=== PATIENT | female | born 1945 | race Caucasian/White ===

== ENCOUNTER 2019-09-09 09:00 | Observation (INO) ==
--- NOTE | 2019-08-17 21:00 | PAT Medication Instructions ---
Medication Instructions Date of Service August 17, 2019 Home Medications acetaminophen [Tylenol Extra Strength] 500 mg PO QID PRN benzonatate 100 mg PO TID PRN bupropion HCl 300 mg PO QAM cholecalciferol (vitamin D3) [Vitamin D3] 25 mcg PO QAM citalopram 20 mg PO QAM cyanocobalamin (vitamin B-12) [Vitamin B-12] 1,000 mcg PO QAM zuamekdvyyr-ipuhljvnk-heyreojl [Trelegy Ellipta] 1 inh INHALATION QAM glipizide 10 mg PO BID lorazepam 1.5 mg PO TID PRN losartan 50 mg PO QAM metformin 1,000 mg PO BID metoprolol succinate 100 mg PO QAM nifedipine 30 mg PO QAM tramadol 100 mg PO Q6H warfarin 3.75 mg PO 4XWK warfarin 7.5 mg PO 3XWK ASK your prescriber and surgeon warfarin 3.75 mg PO 4XWK warfarin 7.5 mg PO 3XWK DO NOT take the morning of surgery benzonatate 100 mg PO TID PRN cholecalciferol (vitamin D3) [Vitamin D3] 25 mcg PO QAM cyanocobalamin (vitamin B-12) [Vitamin B-12] 1,000 mcg PO QAM glipizide 10 mg PO BID losartan 50 mg PO QAM metformin 1,000 mg PO BID Take morning of surgery With a small sip of water, OTHERWISE NOTHING TO EAT OR DRINK AFTER MIDNIGHT: acetaminophen [Tylenol Extra Strength] 500 mg PO QID PRN (okay to take up to 4 hours prior to surgery if needed) bupropion HCl 300 mg PO QAM citalopram 20 mg PO QAM [id number]-splodgkto-vzxxgdet [Trelegy Ellipta] 1 inh INHALATION QAM lorazepam 1.5 mg PO TID PRN (if needed) metoprolol succinate 100 mg PO QAM nifedipine 30 mg PO QAM tramadol 100 mg PO Q6H (okay to take up to 4 hours prior to surgery if needed) Take evening before surgery acetaminophen [Tylenol Extra Strength] 500 mg PO QID PRN (if needed) benzonatate 100 mg PO TID PRN (if needed) glipizide 10 mg PO BID lorazepam 1.5 mg PO TID PRN (if needed) metformin 1,000 mg PO BID tramadol 100 mg PO Q6H Other Notes If you have any questions please call us at [phone] or [phone] or [phone] or [phone]
--- NOTE | 2019-08-18 11:00 | PAT Medication Instructions ---
Medication Instructions Date of Service August 18, 2019 Home Medications acetaminophen [Tylenol Extra Strength] 500 mg PO QID PRN benzonatate 100 mg PO TID PRN bupropion HCl 300 mg PO QAM cholecalciferol (vitamin D3) 25 mcg PO QAM citalopram 20 mg PO QAM cyanocobalamin (vitamin B-12) 1,000 mcg PO QAM [id number]-ieybxmdgf-mymirryt [Trelegy Ellipta] 1 inh INHALATION QAM glipizide 10 mg PO BID lorazepam 1.5 mg PO TID PRN losartan 50 mg PO QAM metformin 1,000 mg PO BID metoprolol succinate 100 mg PO QAM nifedipine 30 mg PO QAM tramadol 100 mg PO Q6H warfarin 3.75 mg PO 4XWK warfarin 7.5 mg PO 3XWK ASK your prescriber and surgeon warfarin 3.75 mg PO 4XWK warfarin 7.5 mg PO 3XWK DO NOT take the morning of surgery acetaminophen [Tylenol Extra Strength] 500 mg PO QID PRN benzonatate 100 mg PO TID PRN cholecalciferol (vitamin D3) 25 mcg PO QAM cyanocobalamin (vitamin B-12) 1,000 mcg PO QAM glipizide 10 mg PO BID losartan 50 mg PO QAM metformin 1,000 mg PO BID Take morning of surgery With a small sip of water, OTHERWISE NOTHING TO EAT OR DRINK AFTER MIDNIGHT: bupropion HCl 300 mg PO QAM citalopram 20 mg PO QAM ahcvkbrwymn-idwkyjine-uiqxcuek [Trelegy Ellipta] 1 inh INHALATION QAM lorazepam 1.5 mg PO TID PRN (if needed) metoprolol succinate 100 mg PO QAM nifedipine 30 mg PO QAM tramadol 100 mg PO Q6H (if needed, may be taken up to four hours before surgery) Take evening before surgery acetaminophen [Tylenol Extra Strength] 500 mg PO QID PRN (if needed) benzonatate 100 mg PO TID PRN (if needed) glipizide 10 mg PO BID lorazepam 1.5 mg PO TID PRN (if needed) metformin 1,000 mg PO BID tramadol 100 mg PO Q6H (if needed) Other Notes If you have any questions please call us at [phone] or [phone] or [phone] or [phone]
--- NOTE | 2019-08-18 11:09 | Anesthesiology Consultation ---
Date of Service August 18, 2019 Assessment & Plan (1) Encounter for pre-operative examination: COVID Status: As of 08/17 assessment, patient denies travel to endemic area, known exposure/sick contacts, or symptoms of COVID19. Patient instructed to follow strict social distancing guidelines, wear a mask in public and avoid travel for 14 days prior to surgery. Preoperative COVID19 testing to be completed prior to surgery. Patient made aware to self-isolate as much as possible between COVID testing and surgery. Patient could not void at [facility]; will take UA to [facility]. Chart Review Chart Review: Acceptable Risk for Surgery (pending surgeon-ordered UA) and Patient seen in Pre Admission Testing Teaching & Discussion Instructed NPO after midnight before surgery, except medications with 15 cc of water. Medication instructions provided according to the [facility] guidelines. History Surgery Operation Date: 09/09/19 10:40 Proposed Procedures p Left Total Knee Arthroplasty - Ru Longo MD Height/Weight Height: 5 ft 3 in Weight: 104.6 kg Allergies Allergy/AdvReac Type Severity Reaction Status Date / Time codeine Allergy UNKNOWN Verified 08/14/19 10:35 loracarbef Allergy UNKNOWN Verified 08/14/19 10:35 promethazine Allergy UNKNOWN Verified 08/14/19 10:35 spironolactone Allergy UNKNOWN Verified 08/14/19 10:35 tizanidine Allergy UNKNOWN Verified 08/14/19 10:35 gabapentin AdvReac Mild HEADACHE Verified 08/14/19 10:35 pregabalin AdvReac Hives Verified 08/14/19 10:35 Medications Home Medications Medication Instructions Recorded Confirmed Last Taken acetaminophen [Tylenol Extra 500 mg PO QID PRN 08/14/19 08/14/19 Unknown Strength] benzonatate 100 mg PO TID PRN 08/14/19 08/14/19 Unknown bupropion HCl 300 mg PO QAM 08/14/19 08/14/19 Unknown cholecalciferol (vitamin D3) 25 mcg PO QAM 08/14/19 08/14/19 Unknown [Vitamin D3] citalopram 20 mg PO QAM 08/14/19 08/14/19 Unknown cyanocobalamin (vitamin B-12) 1,000 mcg PO QAM 08/14/19 08/14/19 Unknown [Vitamin B-12] sacgaxouljp-ibfvchduc-czqymfbg 1 inh INHALATION QAM 08/14/19 08/14/19 Unknown [Trelegy Ellipta] glipizide 10 mg PO BID 08/14/19 08/14/19 Unknown lorazepam 1.5 mg PO TID PRN 08/14/19 08/14/19 Unknown losartan 50 mg PO QAM 08/14/19 08/14/19 Unknown metformin 1,000 mg PO BID 08/14/19 08/14/19 Unknown metoprolol succinate 100 mg PO QAM 08/14/19 08/14/19 Unknown nifedipine 30 mg PO QAM 08/14/19 08/14/19 Unknown tramadol 100 mg PO Q6H 08/14/19 08/14/19 Unknown warfarin 3.75 mg PO 4XWK 08/14/19 08/14/19 Unknown warfarin 7.5 mg PO 3XWK 08/14/19 08/14/19 Unknown Past Medical History Medical History (Updated 08/19/19 @ 09:06 by Ramos Costa) Anxiety Asthma Atrial fibrillation managed by PCP Chronic back pain Chronic obstructive pulmonary disease controlled Congestive heart failure Single episode when dx with afib Depression Diabetes mellitus, type 2 DJD (degenerative joint disease) Hearing deficit Hypertension Kidney stones On home oxygen therapy 2LPM HS Osteoarthritis Exercise / Class Metabolic Activity III < 4 Walking/Shop/Light housework (Can barely walk currently due to knee pain, using cane or walker when has to move but not moving much. +SOB with ambulation at baseline, no chest pain) Past Family History Family History Sister Diabetes Past Surgical History Surgical History H/O bilateral oophorectomy History of arthroscopy LEFT KNEE History of bladder surgery BLADDER TACK History of breast biopsy LEFT History of cholecystectomy History of colonoscopy History of esophagogastroduodenoscopy (EGD) History of hysterectomy History of lithotripsy History of tooth extraction Hx of bilateral cataract extraction Past Anesthesia History No Hx of Anesthesia Complications and No Family Hx of Anesthesia Complications History of PONV No Hx of PONV and No Hx of Motion Sickness Social History Smoking Status: Former smoker Do You Dip or Chew Tobacco: No Smoking End Date: 21 YRS AGO Hx Alcohol Use: Yes Alcohol type: wine alcohol intake frequency: holidays/special occasions only Hx Substance Use: No substance use type: does not use Review of Systems Pt denies any recent chest pain, shortness of breath, cough, fever or URI. Rare palpitations. Physical Exam Vital Signs BP: 160/66 (pt reports she is nervous today) P: 66bpm SPO2: 97% RA T: 98.1 F R: 18 Constitutional + obese ENMT Mouth: + dentures (upper denture), + poor dentition and + macroglossia; no chipped teeth and no loose teeth Thyromental Distance: > or= 3.5 Finger Breadths (3.5) Mallampati Class: I Neck + thick neck; neck extension not limited Respiratory normal respiratory effort Auscultation: lungs clear to auscultation bilaterally Cardiovascular Rate/Rhythm: regular rate and regular rhythm Heart Sounds: no murmur Extremities: no edema Testing Laboratory Results 08/18/19 11:22 08/18/19 11:22 PT 19.8 Seconds (9.0-12.0) H 08/18/19 11:22 INR 1.9 (0.9-1.1) H 08/18/19 11:22 APTT 35.2 Seconds (21.0-31.0) H 08/18/19 11:22 Hemoglobin A1c 6.3 % (4.5-5.6) H 08/18/19 11:22 Blood Type O Positive 08/18/19 11:22 Antibody Screen NEGATIVE 08/18/19 11:22 Electrocardiogram Date: 08/18/19 Findings: + NSR @ (67bpm with PACs) Chest X-Ray Date: 08/18/19 Findings: + NAD
--- NOTE | 2019-08-18 12:44 | Electrocardiogram Report ---
Test Reason : Blood Pressure : / mmHG Vent. Rate : 067 BPM Atrial Rate : 067 BPM P-R Int : 204 ms QRS Dur : 068 ms QT Int : 386 ms P-R-T Axes : 090 069 071 degrees QTc Int : 407 ms Sinus rhythm with Premature atrial complexes Otherwise normal ECG No previous ECGs available Confirmed by Paras Diaz ([id number]) on 08/18/2019 12:43:25 PM Referred By: Ru Longo Confirmed By:Paras Diaz
--- NOTE | 2019-08-18 12:53 | XRay Report ---
XR chest Pre-admission PA/Lat CLINICAL HISTORY: PAT preoperative evaluation COMPARISON STUDY: No previous studies for comparison. FINDINGS: The bones soft tissues and hemidiaphragms are normal. The cardiomediastinal silhouette is n ormal. The lungs are clear. The pulmonary vasculature is normal. IMPRESSION: Negative chest. ACT 112: Negative or not required by law. The above report was generated using voice recognition software. It may contain grammatical, syntax or spelling errors. Electronically signed by: Shelton Carrington M.D. 08/18/2019 12:52 PM
[2019-08-18 13:02] LABS: Basophils # (auto) 0.06 K/uL (0-0.2); Basophils % (auto) 0.7 %; Eosinophils # (auto) 0.15 K/uL (0-0.5); Eosinophils % (auto) 1.8 %; Hematocrit (blood only) 34.4 % (37-47); Hemoglobin 10.4 g/dL (12.0-16.0); Immature Granulocytes # (auto) 0.02 K/uL (0.00-0.02); Immature Granulocytes % (auto) 0.2 %; Lymphocytes % (auto) 28.6 %; Mean Corpuscular Hemoglobin 26.3 pg (25-34); Mean Corpuscular Hgb Conc 30.2 g/dL (32-36); Mean Corpuscular Volume 87.1 fL (80-100); Monocytes # (auto) 0.72 K/uL (0.11-0.59); Monocytes % (auto) 8.6 %; Neutrophils # (auto) 5.04 K/uL (1.4-6.5); Neutrophils % (auto) 60.1 %; Platelet Count 282 K/uL (130-400); RDW Coefficient of Variation 15.2 % (11.5-14.5); RDW Standard Deviation 48.8 fL (36.4-46.3); Red Blood Count 3.95 M/uL (4.2-5.4); White Blood Count 8.39 K/uL (4.8-10.8)
[2019-08-18 13:09] LABS: Estimated Average Glucose 134 mg/dl; Hemoglobin A1C 6.3 % (4.5-5.6)
[2019-08-18 13:10] LABS: Albumin Level 3.4 gm/dl (3.4-5.0); BUN Creatinine Ratio 15.9 (10-20); Calcium 8.8 mg/dl (8.5-10.1); Creatinine Clr Calc Pharmacy 59.8 ml/min; Est GFR (African American) 67.2; Est GFR (Non-African American) 57.9; Potassium 4.8 mmol/L (3.5-5.1)
[2019-08-18 13:16] LABS: INR 1.9 (0.9-1.1); Partial Thromboplastin Ratio 1.3; Partial Thromboplastin Time 35.2 Seconds (21.0-31.0); Prothrombin Time 19.8 Seconds (9.0-12.0)
--- NOTE | 2019-09-08 17:54 | History and Physical Report ---
DATE OF ADMISSION: 09/09/2019 CHIEF COMPLAINT: Chronic left knee pain. HISTORY OF PRESENT ILLNESS: This is a 73-year-old female patient of Dr. Longo'carmen complaining of chronic left knee pain, longstanding, now progressively getting worse. The patient has failed conservative treatment including topical gel treatment, tramadol, home exercise program and the use of a cane. The patient has increased pain with weightbearing activities and her pain does interfere with her activities of daily living. The patient has been diagnosed with end-stage osteoarthritis per clinical and radiographic exams. The patient wished to proceed with a left total knee arthroplasty. PAST MEDICAL HISTORY: Congestive heart failure, hypertension, irregular heartbeat, asthma, COPD, anxiety, diabetes mellitus, neck problems, acid reflux, kidney stones. SOCIAL HISTORY: Nonsmoker, occasional drinker. PAST SURGICAL HISTORY: Hysterectomy and cholecystectomy. FAMILY HISTORY: Noncontributory. REVIEW OF SYSTEMS: Chronic left knee pain, otherwise denies any shortness of breath, chest pain, nausea, vomiting or any other joint complaints. MEDICATIONS: 1. Metformin 1000 mg twice daily. 2. Glipizide 10 mg twice daily. 3. Metoprolol 100 mg daily. 4. Nifedipine 30 mg daily. 5. Losartan 50 mg daily. 6. Citalopram 20 mg daily. 7. Bupropion 150 mg take 2 tablets daily. 8. Lorazepam 0.5 mg 1-2 tablets 3 times daily as needed. 9. Coumadin 2.5 mg daily, Saturday, Saturday, Saturday, and Saturday. 10. Warfarin 7.5 mg Saturday, Saturday and . 11. Tramadol 50 mg as needed. 12. Trelegy Ellipta 100 mcg/62.5 mcg 1 puff inhalation daily. 13. Tylenol as needed. 14. Benzonatate 100 mg 3 times daily. ALLERGIES: No known drug allergies. PHYSICAL EXAMINATION: GENERAL: Well-developed, well-nourished 73-year-old female in no acute distress. She is alert and oriented x3 and pleasant. HEENT: Normocephalic, atraumatic. Extraocular motions are intact. Pupils are equal and reactive to light. HEART: Regular rate and rhythm, no murmurs. LUNGS: Clear. ABDOMEN: Soft, nontender, bowel sounds present. EXTREMITIES: Left knee varus deformity, mild effusion. Medial joint line tenderness with positive crepitation. Range of motion 15-90 degrees. Strength is 5/5, left lower extremity shows moderate lymphedema with no skin breakdown or drainage. No sensitivity to skin. DIAGNOSES: Left knee end-stage osteoarthritis, congestive heart failure, hypertension, irregular heartbeat, asthma, emphysema, anxiety, diabetes mellitus, neck problems, acid reflux, kidney stones. PLAN: The patient was advised of her diagnosis. Indications, risks, benefits, postop course have all been reviewed. The patient wished to proceed with a left total knee arthroplasty. Necessary consent forms, preoperative testing.
[~2019-09-09 09:00] MED LIST: ACETAMINOPHEN 500 MG TAB PO SCH; BUPIVACAINE 0.5 % 5 MG/1 ML PF 10ML VIAL ONE; BUPIVACAINE/EPINEPHRINE 0.25% 1:200,000 30 ML VIAL ONE; CEFAZOLIN 2000MG 2,000 MG/15 ML SYR IV SCH; CeleBREX 200 MG CAP PO SCH; FAMOTIDINE 20 MG TAB PO SCH; GABAPENTIN 300 MG CAP PO SCH; LR 500ML BOLUS, THEN 15ML/HR IV SCH; METOCLOPRAMIDE HCL 10 MG TABLET PO SCH; ROPIVACAINE 0.5% HCL/PF 150 MG, BUPIVACAINE 0.5% MPF 30 ML, EPINEPHrine 30MG/30ML (OR U... INSTIL SCH; dexAMETHasone 4 MG TAB PO SCH
[2019-09-09 10:01] LABS: Partial Thromboplastin Time 26.6 Seconds (21.0-31.0); Prothrombin Time 10.8 Seconds (9.0-12.0)
[2019-09-09] MEDS ORDERED: fentaNYL citrate 100 MCG/2 ML VIAL IV PRN (10:56)
[2019-09-09] MEDS ORDERED: ONDANSETRON INJ 2 MG/ML 2 ML VIAL IV PRN (10:56)
[2019-09-09] MEDS ORDERED: ATROPINE SULFATE 0.1 MG/ML 10ML SYR IV PRN (10:56)
[2019-09-09] MEDS ORDERED: HYDROmorphone INJ 2 MG/ML SYR/VIAL IV PRN (10:56)
[2019-09-09] MEDS ORDERED: ePHEDrine sulfate 50 MG/ML AMP IV PRN (10:56)
[2019-09-09] MEDS ORDERED: MIDAZOLAM HCL 1 MG/ML 2ML VIAL ONE (10:57)
[2019-09-09] MEDS ORDERED: PROPOFOL IV EMULSION 10 MG/ML 20 ML VIAL IV ONE ×3 (10:58→14:03)
[2019-09-09] MEDS ORDERED: ORTHO JOINT ANESTHETIC ONE (11:36)
[2019-09-09] MEDS ORDERED: BACITRACIN INJ 50,000 UNIT VIAL ONE (11:36)
[2019-09-09] MEDS ORDERED: TRANEXAMIC ACID / 0.7% NACL 1000MG/100ML BAG IV ONE (11:37)
--- NOTE | 2019-09-09 11:39 | History & Physical Bridge Note ---
Date of Service September 09, 2019 History & Physical Bridge Note I have examined the patient, reviewed the History & Physical and in the interval since the performance of the History & Physical I have noted the following changes of clinical significance: no changes noted
[2019-09-09] MEDS ORDERED: TRANEXAMIC ACID / 0.7% NACL 1,000 MG/100 ML BAG IV STA (11:43)
[2019-09-09] MEDS ORDERED: CLINDAMYCIN 900 MG in DEXTROSE 5% 50 ML IV ONE (12:00)
--- NOTE | 2019-09-09 14:17 | Post Operative Brief Note ---
Immediate Post Op Note v1 Date of Surgery September 09, 2019 Pre & Post Diagnosis Operation Date: 09/09/19 11:20 Pre-Op Diagnosis: LEFT KNEE OSTEOARTHRITIS, obesity BMI 41 Post-Op Diagnosis: LEFT KNEE OSTEOARTHRITIS, obesity BMI 41 I identified the patient and participated in the time-out.: Yes Procedure Operation Date: 09/09/19 11:20 Actual Procedures p Left Total Knee Arthroplasty(Left), increased difficulty BMI 41- Ru Longo MD Surgeon Ru Longo MD Water Supply Engineer WING Moran Estimated Blood Loss 5 Findings Consistent with Post-Op Diagnosis Specimens Bone cuts Drains Hemovac Drain (10 palestinian, dual lumen) Anesthesia Type MAC Spinal Regional Complications none Disposition Accompanied Patient To Recovery: No Disposition: Recovery Room Overlapping Procedure I was immediately available: during the entire case.
--- NOTE | 2019-09-09 14:32 | Operative Report ---
Post Operative Report Pre & Post Diagnosis Operation Date: 09/09/19 11:20 Pre-Op Diagnosis: LEFT KNEE OSTEOARTHRITIS obesity BMI 41 Post-Op Diagnosis: LEFT KNEE OSTEOARTHRITIS obesity BMI 41 I identified the patient and participated in the time-out.: Yes Procedure Operation Date: 09/09/19 11:20 Actual Procedures p Left Total Knee Arthroplasty(Left), increased difficulty obesity BMI 41- Ru Longo MD Surgeon Ru Longo MD [place] Consultant WING Moran Estimated Blood Loss 5 Findings Consistent with Post-Op Diagnosis Specimens Bone cuts Drains 2 Hemovac Anesthesia Type MAC Spinal Regional Complications none Disposition Accompanied Patient To Recovery: No Disposition: Recovery Room Indications 70-year female with extremely severe bilateral knee osteoarthritis tricompartmental disease cyih-[id number] medial compartment bilaterally varus knees. Large hypertrophic osteophytes all compartments. Limited range of motion. Description of Procedure Patient taken to the operating room the size under spinal MAC regional anesthesia. Patient was placed supine on the operating table. A pneumatic to urniquet was placed about the obese left upper thigh. The left lower extremity was prepped and draped in sterile fashion. Knee exam demonstrated 10 through 80 degrees range of motion only. The leg was elevated exsanguinated with an Esmarch bandage and pneumatic tourniquet was raised to 350 millimeters of mercury. Skin incised sharply in longitudinal fashion. Subcutaneous flaps elevated. Incision was made through the medial retinaculum extending up in the mid third of the quadriceps tendon and down to the medial tibial tubercle. Intra-articular findings demonstrated severe tricompartmental DJD large medial posterior medial osteophytes large patellofemoral osteophytes grade 4 medial compartment and patellofemoral OA with tricompartmental DJD tricompartmental osteophytes. The Paper[place] triathlon total knee arthroplasty system was used. To expose the knee the infrapatellar fat pad was resected. The meniscal remnants and cruciate ligaments were resected. The anterior fat pad over the femur in the area of the anterior flange of the femoral component was resected. Lateral synovial bands release. The femur was exposed. An intramedullary drill hole was made into the canal. A guide cameron was placed. Distal femoral cutting guide was adjusted to resect a 5 degree valgus cut with 10 millimeters distal femur resected. The knee was extended and a subperiosteal peel lateral release was performed around the patella. Patella width was measured and width was reproduced using a freehand cut technique and a 33 symmetrical patella component. The 3 drill holes were made and the excess lateral facet was beveled off to prevent any impingement. Attention was taken back to the femur which was exposed with retractors and the femoral sizing guide was pinned in position. The drill holes were placed in 3 of external rotation to match epicondylar axis. Femur sized for a 3 component. The 4-in-1 cutting block was placed and then the anterior posterior and chamfer cuts are made. Very large medial posterior medial osteophytes on both the tibia and the femur were resected. The tibia was then subluxed. The external tibial cutting guide was just to make a perpendicular cut to the long axis of the tibia below the most deficient bone loss side. A lamina hat body sorter was used and the flexion extension gaps were balanced. All posterior osteophytes removed. All meniscal remnants were resected. The tibia exposed and the trial tibial component size 3 was externally rotated in line with the tibial tubercle and pinned in position. The punch for stem was used. The notch cutting device was centered appropriately and the femoral notch cut was made. The femoral trial was inserted. Trial tibial inserts were placed and size 13 posterior stabilized gave balanced ligaments through flexion and extension. Patella tracking was assessed. The patella tracked centrally. The trial components were then removed and the orthomix anesthetic cocktail was injected per protocol. The knee was then copiously irrigated with pulsatile lavage antibiotic solution. Final components were then cemented with Simplex cement. Final components were [place] triathlon size 3 posterior stabilized left femoral component, 3 primary tibial baseplate, x 3 polyethylene size 13 posterior stabilized tibial insert, x 3 polyethylene 33 symmetrical patella. While the cement cured the Betadine soak was used per protocol. After cement cured further pulsatile lavage irrigation performed and 2 Hemovac drains were brought out laterally. The quadriceps tendon and medial retinaculum were closed with figure of 8 #1 Vicryl sutures. The knee was taken through full range of motion and the repair was secure. The subcutaneous tissues were closed with 2-0 Vicryl sutures. Skin was closed with smiley. Sterile dressings were applied. There was some increased level difficulty and increased length of time due to her obesity and severity of the knee arthritis. Patient tolerated the procedure well. Shelton DIMAS was my physician blood and plasma laboratory assistant who assisted in patient positioning prepping and draping,leg positioning ,soft tissue retraction and instrument management and participated in the closing and will participate in postoperative care of the patient. I attest to the content of the Intraoperative Record and any orders documented therein. Any exceptions are noted below.
--- NOTE | 2019-09-09 14:43 | XRay Report ---
XR knee LT 1 or 2V routine CLINICAL HISTORY: Postoperative evaluation. COMPARISON: None FINDINGS: Alignment of the total left knee arthroplasty is anatomic. There is no periprosthetic frac ture or unexpected radiopaque foreign body. There are skin smiley and drains. IMPRESSION: Expected findings following total left knee arthroplasty. ACT 112: Negative or not required by law. Electronically signed by: Charlie Green M.D. 09/09/2019 2:42 PM
--- NOTE | 2019-09-09 14:59 | Anesthesiology Progress Note ---
Date of Service September 09, 2019 Anesthesia Post Procedure Vital Signs Vital Signs: Temp Pulse Pulse Resp BP Pulse Ox 09/09/19 14:55 36.3 C L 85 17 161/72 H 95 09/09/19 14:45 85 16 137/76 97 09/09/19 14:35 90 17 145/79 H 96 09/09/19 14:25 85 17 145/73 H 97 09/09/19 14:17 36.5 C 94 H 19 142/85 H 100 09/09/19 10:47 36.7 C 83 20 127/67 95 09/09/19 09:48 36.9 C 78 20 187/81 H 94 Pain Intensity Left Knee: Pain Intensity: 0 Transfer of Care Handoff Completed per policy Notes Mental Status: alert / awake / arousable and participated in evaluation Patient Amnestic to Procedure: Yes Nausea / Vomiting: adequately controlled Pain: adequately controlled Airway Patency, RR, SpO2: stable & adequate BP & HR: stable & adequate Hydration State: stable & adequate Anesthetic Complications: no major complications apparent and Pt Satisfied with anesthetic care
[2019-09-09] MEDS ORDERED: bisacodyL 10 MG SUPP PR PRN (15:31)
[2019-09-09] MEDS ORDERED: NALOXONE HCL 0.4 MG/1 ML VIAL/CARP IV PRN (15:31)
[2019-09-09] MEDS ORDERED: LORazepam 1 MG TAB PO PRN (15:31)
[2019-09-09] MEDS ORDERED: BENZONATATE 100 MG CAPSULE PO PRN (15:31)
[2019-09-09] MEDS ORDERED: VANCOMYCIN CONSULT ACTIVE PRN (16:00)
[2019-09-09] MEDS ORDERED: PHARMACY GLYCEMIC MGMT CONSULT PRN (16:15)
[2019-09-09] MEDS ORDERED: MAGNESIUM HYDROXIDE SUSP 30 ML UDC PO PRN (16:15)
--- NOTE | 2019-09-09 16:51 | Pharmacy Report ---
Glycemic Control Consultation - Date of Service September 09, 2019 - Scope Scope: Glycemic Pharmacist consulted for glycemic control and to write orders per [facility] inpatient glycemic control protocol. - Objective Weight: 104.9 kg Accuchecks BSG (last 24hrs): 09/09/19 09/09/19 09:27 14:27 POC Glucose 113 H 200 H HbA1c: Hemoglobin A1c 6.3 % (4.5-5.6) H 08/18/19 11:22 - Recent Pertinent Medications Outpatient Anti-diabetic Regimen: * Metformin 1000 mg PO BID, Glipizide 10 mg PO BID * A1c = 6.3% on 08/18/2019 Risk Factors for Insulin Resistance: * Steroids: * Dexamethasone 8 mg PO pre-op * Recent Surgery: * POD #0 L TKA * Diet: * T2DM - Assessment & Plan Assessment & Plan: ASSESSMENT: * 73 yo F admitted secondary to left total knee arthroplasty. Pharmacy is consulted for glycemic management. Patient is well-controlled as an outpatient on Metformin + Glipizide demonstrated by recent A1c of 6.3%. * Pt is maintained on oral antidiabetic agents as an outpatient * Oral agents are not recommended for inpatient use d/t drug interactions, changing PO intake, and difficulty titrating for acute hyper/hypoglycemia. ADA recommends re-initiating outpatient oral agents 1-2 days prior to discharge if/when appropriate if they were held on admission. Will hold oral agents for admission and utilize SQ basal bolus insulin regimen which is the recommended regimen for inpatient glycemic control. * ADA & AACE recommend a goal blood sugar range 140-180 mg/dl for the majority of critically ill & non-critically ill patients. However, more stringent targets may be selected in individual cases. Will utilize more stringent goal of 110-140mg/dl based on patient age & comorbidities. Additionally, tighter glycemic control is warranted to facilitate wound/infection healing. * Patient is at risk for hyperglycemia secondary to stressors of recent surgery, pre-op steroids and diet ordered. * Pre-op BSG was 113 mg/dL. Post-op BSG was elevated at 200 mg/dL. * Given post-op hyperglycemia and stressors, will give patient a one time, moderate stress, weight based basal insulin order to cover for prolonged duration of dexamethasone. Will also plan to start patient on bolus insulin based on high stress, weight based dose. PLAN FOR INPATIENT GLYCEMIC CONTROL: * Holding outpatient oral diabetes medications * Basal insulin * Lantus 20 units SQ x 1 * Bolus insulin * NovoLog per scale ACHS or Q6hrs while NPO * Goal Range: Low 110 mg/dL - High 140 mg/dL * Correction Factor: 15 mg/dL/unit * Nutritional / Prandial insulin per carb ratio of 1 unit per 5 grams CHO consumed * Please note that the plan above was derived based on current level of insulin resistance and hospital stress. These recommendations are appropriate for inpatient admission only. Plan of care upon discharge will need to be reassessed to avoid potential outpatient hypo/hyperglycemia. Thank you.
[2019-09-09] MEDS ORDERED: LANTUS PER UNIT CHARGE SQ ONE (17:00)
[2019-09-09] MEDS: SODIUM CHLORIDE 0.9% 1000ML 1,000 ML IV SCH (17:38)
[2019-09-09] MEDS: WARFARIN SOD 7.5 MG TAB PO SCH (17:42)
[2019-09-09] MEDS: INSULIN ASPART 100 UNITS/ML 3 ML PEN SC SCH ×2 (17:47→21:45)
--- NOTE | 2019-09-09 18:45 | Internal Medicine Consult Note ---
Date of Consultation September 09, 2019 Assessment & Plan (1) S/P total knee arthroplasty: Left knee arthroplasty POD #0 Management will be as per Ortho Denies any significant pain (2) Atrial fibrillation: History of irregular heartbeats likely secondary to atrial fibrillation Preoperative EKG did not show any atrial fibrillation (3) Chronic obstructive pulmonary disease: History of COPD on home oxygen Minimal wheezing involving the left base (4) Asthma: No acute exacerbation (5) On home oxygen therapy: As above (6) Hypertension: Blood pressure seems to be controlled DVT prophylaxis As per Ortho History of Present Illness Reason for Consultation: Medical management following left knee arthroplasty Requesting Physician: Dr. Longo Attending Physician: Ru Longo MD History of Present Illness She is a 73-year-old obese female with significant past medical history including CHF, hypertension, atrial fibrillation, asthma, COPD, diabetes, anxiety and GERD apparently underwent left total knee arthroplasty by Dr. Wilde this morning. Preoperative labs EKG and imaging studies were unremarkable. She complained some numbness involving the left knee but denies any other significant symptoms following surgery. Denies any chest pain and no p alpitation. No abdominal pain nausea no vomiting. No headache, no numbness and/or tingling involving any of the extremities. Allergies Allergy/AdvReac Type Severity Reaction Status Date / Time codeine Allergy UNKNOWN Verified 09/09/19 09:43 loracarbef Allergy UNKNOWN Verified 09/09/19 09:43 promethazine Allergy UNKNOWN Verified 09/09/19 09:43 spironolactone Allergy UNKNOWN Verified 09/09/19 09:43 tizanidine Allergy UNKNOWN Verified 09/09/19 09:43 gabapentin AdvReac Mild HEADACHE Verified 09/09/19 09:43 pregabalin AdvReac Hives Verified 09/09/19 09:43 Home Medications Home Medications Medication Instructions Recorded Confirmed Type acetaminophen [Tylenol Extra 500 mg PO QID PRN 08/14/19 09/09/19 History Strength] benzonatate 100 mg PO TID PRN 08/14/19 09/09/19 History bupropion HCl 300 mg PO QAM 08/14/19 09/09/19 History cholecalciferol (vitamin D3) 25 mcg PO QAM 08/14/19 09/09/19 History [Vitamin D3] citalopram 20 mg PO QAM 08/14/19 09/09/19 History cyanocobalamin (vitamin B-12) 1,000 mcg PO QAM 08/14/19 09/09/19 History [Vitamin B-12] hplebnzioxd-zfkdctnus-bciwzzgk 1 inh INHALATION QAM 08/14/19 09/09/19 History [Trelegy Ellipta] glipizide 10 mg PO BID 08/14/19 09/09/19 History lorazepam 1.5 mg PO TID PRN 08/14/19 09/09/19 History losartan 50 mg PO QAM 08/14/19 09/09/19 History metformin 1,000 mg PO BID 08/14/19 09/09/19 History metoprolol succinate 100 mg PO QAM 08/14/19 08/14/19 History nifedipine 30 mg PO QAM 08/14/19 08/14/19 History tramadol 100 mg PO Q6H 08/14/19 08/14/19 History warfarin 3.75 mg PO 4XWK 08/14/19 08/14/19 History warfarin 7.5 mg PO 3XWK 08/14/19 08/14/19 History Patient History Family History Sister Diabetes Social History Smoking Status: Former smoker Smoking End Date: 21 YRS AGO; Second Hand Exposure: No; Do You Dip or Chew Tobacco: No; Tobacco Cessation Education Requested by Patient: No Hx Alcohol Use: Yes Alcohol type: wine Hx Substance Use: No Preferred Language: Portuguese Communication Ability: Effective Cheesemaker Required: No Beliefs That Will Affect Care: None marital status: / Current Living Situation: Alone Other Information That Helps Us Care for You: No Feels Safe at Home: Yes Safety Concerns: Feels Safe At This Time Review of Systems Review of Systems: All systems reviewed & are unremarkable except as noted in HPI & below Physical Exam Physical Exam: Lying in bed comfortably Constitutional: WD/WN, vitals as above Eyes: PERRL, conjunctivae normal, anicteric sclerae ENMT: external ear and nose normal, oropharynx normal Neck: trachea midline, no thyromegaly Respiratory: no respiratory distress Auscultation: lungs clear to auscultation bilaterally and + diminished lung sounds (With minimal rhonchi left base) Cardiovascular: Rate/Rhythm: regular rate and regular rhythm Heart Sounds: no murmur Gastrointestinal (Abdomen): Inspection/Auscultation: abdomen normal to inspection and normal bowel sounds; abdomen not distended Musculoskeletal: No acute arthritis in any joint but left knee is not examined Neurologic: Alert, awake and oriented x3 Results & Data Vital Signs (Past 12 Hours) Vital Signs Temp Pulse Pulse Resp BP Pulse Ox 09/09/19 17:33 37.1 C 76 17 147/84 H 97 09/09/19 16:25 36.8 C 86 17 159/85 H 97 09/09/19 15:05 85 16 152/77 H 96 09/09/19 14:55 36.3 C L 85 17 161/72 H 95 09/09/19 14:45 85 16 137/76 97 09/09/19 14:35 90 17 145/79 H 96 09/09/19 14:25 85 17 145/73 H 97 09/09/19 14:17 36.5 C 94 H 19 142/85 H 100 09/09/19 10:47 36.7 C 83 20 127/67 95 09/09/19 09:48 36.9 C 78 20 187/81 H 94 Medications Administered Current Inpatient Medications Acetaminophen (Tylenol) 1,000 mg PO Q8 [facility] Stop: 10/09/19 21:59 Benzonatate (Tessalon Perle) 100 mg PO TID PRN PRN Reason: Cough Stop: 10/09/19 15:30 Bisacodyl (Dulcolax) 10 mg [place] DAILY PRN PRN Reason: Constipation Stop: 10/09/19 15:30 Bupropion HCl (Wellbutrin-Xl) 300 mg PO QAM [facility] Stop: 10/10/19 08:59 Celecoxib (Celebrex) 200 mg PO BID [facility] Stop: 10/09/19 20:59 Citalopram Hydrobromide (Celexa) 20 mg PO QAM [facility] Stop: 10/10/19 08:59 Cyanocobalamin (Vitamin B-12) 1,000 mcg PO QAM [facility] Stop: 10/10/19 08:59 Diphenhydramine HCl (Benadryl Capsule) 25 mg PO Q8H PRN PRN Reason: Itching Stop: 10/09/19 15:30 Docusate Sodium (Colace) 100 mg PO BID [facility] Stop: 10/09/19 20:59 Fluticasone Furoate (Arnuity Ellipta 100mcg) 1 puffs INH DAILY [facility]; Protocol Stop: 10/10/19 08:59 Hydromorphone HCl (Dilaudid) 0.5 mg IV Q4H PRN PRN Reason: Pain or Pre PT Stop: 09/23/19 15:30 Vancomycin HCl 1,500 mg/ (Sodium Chloride) 530 mls @ 125 mls/hr IV Q12H [facility]; Protocol Stop: 09/10/19 19:59 Sodium Chloride (Nss 1000ml) 1,000 mls @ 100 mls/hr IV .Q10H [facility] Stop: 09/10/19 15:59 Last Admin: 09/09/19 17:38 Dose: 100 mls/hr Documented by: Insulin Aspart (Novolog Flexpen) 0 units SC ACHS [facility]; Protocol Stop: 10/09/19 16:59 Last Admin: 09/09/19 17:47 Dose: 13 units Documented by: Lorazepam (Ativan) 1.5 mg PO TID PRN PRN Reason: Anxiety Stop: 10/09/19 15:30 Losartan Potassium (Cozaar) 50 mg PO [facility] Stop: 10/10/19 08:59 Magnesium Hydroxide (Milk Of Magnesia) 30 ml PO Q6H PRN PRN Reason: Constipation Stop: 10/09/19 16:14 Metoprolol Succinate ([facility] Xl) [facility] Stop: 10/10/19 08:59 Miscellaneous Information (Consult Glycemic Management Pharmacy) 1 ea N/A UD PRN PRN Reason: Consult Stop: 10/09/19 16:14 Multivitamins (Multivitamin Tab) 1 tab PO [facility] Stop: 10/10/19 08:59 Naloxone HCl (Narcan) 0.1 mg IV Q5M PRN PRN Reason: Oversedation/Resp Depression Stop: 10/09/19 15:30 Nifedipine (Procardia Xl) [facility] Stop: 10/10/19 08:59 Oxycodone HCl (Roxicodone Immediate Rel) 5 - 10 mg PO Q4H PRN PRN Reason: Pain or Pre PT Stop: 09/23/19 16:14 Sennosides (Senokot) 17.2 mg PO [facility] Stop: 10/09/19 20:59 Tramadol HCl (Ultram) 50 - 100 mg PO Q4H PRN PRN Reason: Pain & Pre PT Stop: 10/09/19 15:30 Umeclidinium/Vilanterol (Anoro Ellipta 62.5/25 Mcg Inh) 1 puffs INH DAILY [facility]; Protocol Stop: 10/10/19 08:59 Vitamin D (Vitamin D3) 1,000 units PO QAM [facility] Stop: 10/10/19 08:59 Warfarin Sodium (Coumadin) 7.5 mg PO TuWeTh@1600 [facility] Stop: 10/09/19 16:59 Last Admin: 09/09/19 17:42 Dose: 7.5 mg Documented by: Warfarin Sodium (Coumadin) 3.75 mg PO SuMoFrSa@1600 [facility] Stop: 10/11/19 15:59
[2019-09-09] MEDS: CeleBREX 200 MG CAP PO SCH (20:14)
[2019-09-09] MEDS: VANCOMYCIN HCL 1,500 MG in SODIUM CHLORIDE 0.9% 500 ML IV SCH (20:14)
[2019-09-09] MEDS: DOCUSATE SODIUM 100 MG CAP PO SCH (20:14)
[2019-09-09] MEDS: SENNA 8.6 MG TAB PO SCH (20:14)
[2019-09-09] MEDS: TRAMADOL HCL 50 MG TABLET PO PRN (20:15)
[2019-09-09] MEDS: ACETAMINOPHEN 500 MG TAB PO SCH (21:46)
[2019-09-10] MEDS ORDERED: CLINDAMYCIN PHOS 900 MG/6 ML VIAL IV SCH (06:00)
[2019-09-10] MEDS: ACETAMINOPHEN 500 MG TAB PO SCH ×3 (06:12→21:52)
[2019-09-10] MEDS: SODIUM CHLORIDE 0.9% 1000ML 1,000 ML IV SCH ×2 (06:23→12:40)
[2019-09-10 06:29] LABS: Basophils # (auto) 0.01 K/uL (0-0.2); Basophils % (auto) 0.1 %; Eosinophils # (auto) 0.01 K/uL (0-0.5); Eosinophils % (auto) 0.1 %; Hematocrit (blood only) 27.2 % (37-47); Hemoglobin 8.6 g/dL (12.0-16.0); Immature Granulocytes # (auto) 0.03 K/uL (0.00-0.02); Immature Granulocytes % (auto) 0.3 %; Lymphocytes % (auto) 13.2 %; Mean Corpuscular Hgb Conc 31.6 g/dL (32-36); Mean Corpuscular Volume 85.5 fL (80-100); Mean Platelet Volume 10.4 fL (7.4-10.4); Monocytes # (auto) 0.82 K/uL (0.11-0.59); Monocytes % (auto) 7.2 %; Neutrophils # (auto) 8.99 K/uL (1.4-6.5); Neutrophils % (auto) 79.1 %; Platelet Count 208 K/uL (130-400); RDW Coefficient of Variation 15.8 % (11.5-14.5); RDW Standard Deviation 49.3 fL (36.4-46.3); Red Blood Count 3.18 M/uL (4.2-5.4); White Blood Count 11.36 K/uL (4.8-10.8)
[2019-09-10 06:39] LABS: INR 1.1 (0.9-1.1); Prothrombin Time 11.2 Seconds (9.0-12.0)
[2019-09-10 07:11] LABS: BUN Creatinine Ratio 13.3 (10-20); Calcium 8.2 mg/dl (8.5-10.1); Creatinine Clr Calc Pharmacy 52.3 ml/min; Est GFR (African American) 57.1; Est GFR (Non-African American) 49.2; Magnesium 1.7 mg/dl (1.8-2.4); Potassium 4.9 mmol/L (3.5-5.1)
[2019-09-10] MEDS: FLUTICASONE FUROATE 100MCG 14 PUFFS/INHALER INH SCH (08:38)
[2019-09-10] MEDS: UMECLIDINIUM/VILANTEROL 62.5/25MCG 7 PUFFS/INHALER INH SCH (08:38)
[2019-09-10] MEDS: METOPROLOL SUCC 50MG EXT REL TAB PO SCH (08:38)
[2019-09-10] MEDS: NIFEdipine EXTENDED REL 30 MG TABCR PO SCH (08:39)
[2019-09-10] MEDS: LOSARTAN POTASSIUM 50 MG TAB PO SCH (08:39)
[2019-09-10] MEDS: CYANOCOBALAMIN 500 MCG TABLET (VITAMIN B-12) PO SCH (08:39)
[2019-09-10] MEDS: CITALOPRAM 20 MG TAB PO SCH (08:39)
[2019-09-10] MEDS: MULTIVITAMIN TAB PO SCH (08:39)
[2019-09-10] MEDS: BuPROPion XL 300 MG TABCR PO SCH (08:39)
[2019-09-10] MEDS: DOCUSATE SODIUM 100 MG CAP PO SCH ×2 (08:39→20:25)
[2019-09-10] MEDS: CeleBREX 200 MG CAP PO SCH ×2 (08:39→20:24)
[2019-09-10] MEDS: CHOLECALCIFEROL 1,000 UNITS 25 MCG TAB PO SCH (08:39)
[2019-09-10] MEDS: INSULIN ASPART 100 UNITS/ML 3 ML PEN SC SCH ×4 (08:48→21:48)
[2019-09-10] MEDS ORDERED: NON-FORMULARY MEDICATION (Fluticasone-Umeclidin-Vilanter [Trelegy Ellipta] 1 PUFFS) INH SCH (09:00)
--- NOTE | 2019-09-10 09:38 | Orthopedic Progress Note ---
Date of Service September 10, 2019 Assessment & Plan (1) S/P total knee arthroplasty: POD #1, Left TKA PT/ OT DVT proph- Resume home coumadin dosing D/C planning- Rehab/ SNF As per medicine. Will make full admission due to: Post op anemia, recheck Hgb in the AM Pain control Needs supplemental O2 via NC...2L. Lives alone and needs placement as per clinical social work therapist. Admission and Anticipated Discharge Date Admission Date: September 09, 2019 Subjective POD #1, feeling well. Denies SOB, CP, N/V, Dizziness. Pain is main issue. Has not had PT yet. Wishes for rehab/ SNF upon Discharge. Hgb 8.6. On 2L O2. Physical Exam Physical Exam: Left knee dressings c/d/i, no drainage. Toes/ ankle mobile. No calf tenderness. A&Ox3. N/V+. Results & Data ([facility]) Vital Signs (Past 12 Hours) Vital Signs Temp Pulse Resp BP Pulse Ox 09/10/19 07:44 36.5 C 69 16 141/75 H 98 09/10/19 03:03 36.5 C 75 18 138/76 98 09/09/19 23:40 36.9 C 93 H 18 139/80 94
[2019-09-10] MEDS: VANCOMYCIN HCL 1,500 MG in SODIUM CHLORIDE 0.9% 500 ML IV SCH (10:07)
[2019-09-10] MEDS: OXYCODONE HCL IR 5 MG TAB (IMMEDIATE RELEASE) PO PRN ×2 (10:14→19:01)
--- NOTE | 2019-09-10 11:42 | Pharmacy Report ---
Pharmacy Glycemic Short Note 2 - Date of Service September 10, 2019 - Glycemic Short BSG Results (Last 24 hours): 09/09/19 09/09/19 09/09/19 14:27 17:08 20:55 Glucose POC Glucose 200 H 219 H 225 H 09/10/19 09/10/19 06:11 08:06 Glucose 135 H POC Glucose 146 H ASSESSMENT: 09/09 * Patient received 39 units of insulin yesterday, of which 20 units were basal insulin * Fasting BSG 135 mg/dl - will hold further basal as no more steroids ordered * Plan to loosen CF/CR today as steroid wear off PLAN FOR INPATIENT GLYCEMIC CONTROL: * Holding outpatient oral diabetes medications * Basal insulin * Lantus - hold * Bolus insulin * NovoLog per scale ACHS or Q6hrs while NPO * Goal Range: Low 110 mg/dL - High 140 mg/dL * Correction Factor: 20 mg/dL/unit * Nutritional / Prandial insulin per carb ratio of 1 unit per 7 grams CHO consumed * Please note that the plan above was derived based on current level of insulin resistance and hospital stress. These recommendations are appropriate for inpatient admission only. Plan of care upon discharge will need to be reassessed to avoid potential outpatient hypo/hyperglycemia. Thank you. PLAN FOR DISCHARGE: * A1C of 6.3% on 08/18/19 * Patient on metformin and glipizide for glucose control at home. Geriatric patients may be more susceptible to the hypoglycemic effects of glipizide. Would ensure patient is self monitoring blood sugars at home and not reporting low BSGs * Less stringent goal of A1C less than 8% may be appropriate in the elderly population. Would recommend reevaluating use with glipizide. If low BSGs reported, would recommend discontinuation of medication.
[2019-09-10] MEDS: WARFARIN SOD 7.5 MG TAB PO SCH (16:09)
--- NOTE | 2019-09-10 16:41 | Hospitalist Progress Note ---
Date of Service September 10, 2019 Assessment & Plan (1) S/P total knee arthroplasty: Left knee arthroplasty POD #0 Management will be as per Ortho Denies any significant pain Acute blood loss anemia Complicated by recent surgery Hemoglobin dropped to 8.6 from 10. On 08/18/2019 We will repeat CBC tomorrow (2) Atrial fibrillation: History of irregular heartbeats likely secondary to atrial fibrillation Preoperative EKG did not show any atrial fibrillation Heart rate remains controlled (3) Chronic obstructive pulmonary disease: History of COPD on home oxygen Minimal wheezing involving the left base No shortness of breath and/or wheezing at rest (4) Asthma: No acute exacerbation (5) On home oxygen therapy: As above (6) Hypertension: Blood pressure seems to be controlled DVT prophylaxis As per Ortho Coumadin has been restarted Admission and Anticipated Discharge Date Admission Date: September 10, 2019 Subjective The patient was seen and examined in medical floor She is status post left total knee arthroplasty, POD #1 Denies any significant symptoms Review of Systems Review of Systems: All systems reviewed and are unremarkable except as noted below Musculoskeletal: Left knee pain Physical Exam Constitutional: WD/WN, vitals as above Eyes: PERRL, conjunctivae normal, anicteric sclerae ENMT: external ear and nose normal, oropharynx normal Neck: trachea midline, no thyromegaly Respiratory: no respiratory distress Auscultation: lungs clear to auscultation bilaterally and + diminished lung sounds (With minimal rhonchi left base) Cardiovascular: Rate/Rhythm: regular rate and regular rhythm Heart Sounds: no murmur Gastrointestinal (Abdomen): Inspection/Auscultation: abdomen normal to inspection and normal bowel sounds; abdomen not distended Musculoskeletal: Left knee pain status post left knee arthroplasty Results & Data Results & Data ([facility]) Vital Signs (Past 12 Hours) Vital Signs Temp Pulse Resp BP BP Pulse Ox Pulse Ox 09/10/19 16:03 37 C 84 18 168/83 H 97 09/10/19 11:29 36.7 C 92 H 16 161/80 H 97 09/10/19 10:17 96 09/10/19 07:44 36.5 C 69 16 141/75 H 98 Laboratory Results Short CBC 09/10/19 Range/Units 06:11 WBC 11.36 H (4.8-10.8) K/uL Hgb 8.6 L (12.0-16.0) g/dL Hct 27.2 L (37-47) % Plt Count 208 (130-400) K/uL BMP 09/10/19 06:11 Sodium 142 Potassium 4.9 Chloride 110 H Carbon Dioxide 28 BUN 15 Creatinine 1.11 Glucose 135 H Calcium 8.2 L Medications Administered Current Inpatient Medications Acetaminophen (Tylenol) 1,000 mg PO Q8 [facility] Stop: 10/09/19 21:59 Last Admin: 09/10/19 12:40 Dose: 1,000 mg Documented by: Benzonatate (Tessalon Perle) 100 mg PO TID PRN PRN Reason: Cough Stop: 10/09/19 15:30 Bisacodyl (Dulcolax) 10 mg [place] DAILY PRN PRN Reason: Constipation Stop: 10/09/19 15:30 Bupropion HCl (Wellbutrin-Xl) 300 mg PO QAM [facility] Stop: 10/10/19 08:59 Last Admin: 09/10/19 08:39 Dose: 300 mg Documented by: Celecoxib (Celebrex) 200 mg PO BID [facility] Stop: 10/09/19 20:59 Last Admin: 09/10/19 08:39 Dose: 200 mg Documented by: Citalopram Hydrobromide (Celexa) 20 mg PO QAM [facility] Stop: 10/10/19 08:59 Last Admin: 09/10/19 08:39 Dose: 20 mg Documented by: Cyanocobalamin (Vitamin B-12) 1,000 mcg PO QAM [facility] Stop: 10/10/19 08:59 Last Admin: 09/10/19 08:39 Dose: 1,000 mcg Documented by: Diphenhydramine HCl (Benadryl Capsule) 25 mg PO Q8H PRN PRN Reason: Itching Stop: 10/09/19 15:30 Docusate Sodium (Colace) 100 mg PO BID [facility] Stop: 10/09/19 20:59 Last Admin: 09/10/19 08:39 Dose: 100 mg Documented by: Fluticasone Furoate (Arnuity Ellipta 100mcg) 1 puffs INH DAILY [facility]; Protocol Stop: 10/10/19 08:59 Last Admin: 09/10/19 08:38 Dose: 1 puffs Documented by: Hydromorphone HCl (Dilaudid) 0.5 mg IV Q4H PRN PRN Reason: Pain or Pre PT Stop: 09/23/19 15:30 Vancomycin HCl 1,500 mg/ (Sodium Chloride) 530 mls @ 125 mls/hr IV Q12H [facility]; Protocol Stop: 09/10/19 19:59 Last Infusion: 09/10/19 15:13 Dose: Infused Documented by: Insulin Aspart (Novolog Flexpen) 0 units SC [facility]; Protocol Stop: 10/09/19 16:59 Last Admin: 09/10/19 12:37 Dose: 7 units Documented by: Lorazepam (Ativan) 1.5 mg PO TID PRN PRN Reason: Anxiety Stop: 10/09/19 15:30 Last Admin: 09/09/19 23:50 Dose: 1.5 mg Documented by: Losartan Potassium (Cozaar) 50 mg PO [facility] Stop: 10/10/19 08:59 Last Admin: 09/10/19 08:39 Dose: 50 mg Documented by: Magnesium Hydroxide (Milk Of Magnesia) 30 ml PO Q6H PRN PRN Reason: Constipation Stop: 10/09/19 16:14 Metoprolol Succinate (Toprol Xl) 100 mg PO [facility] Stop: 10/10/19 08:59 Last Admin: 09/10/19 08:38 Dose: 100 mg Documented by: Miscellaneous Information (Consult Glycemic Management Pharmacy) 1 ea N/A UD PRN PRN Reason: Consult Stop: 10/09/19 16:14 Multivitamins (Multivitamin Tab) 1 tab PO [facility] Stop: 10/10/19 08:59 Last Admin: 09/10/19 08:39 Dose: 1 tab Documented by: Naloxone HCl (Narcan) 0.1 mg IV Q5M PRN PRN Reason: Oversedation/Resp Depression Stop: 10/09/19 15:30 Nifedipine (Procardia Xl) 30 mg PO [facility] Stop: 10/10/19 08:59 Last Admin: 09/10/19 08:39 Dose: 30 mg Documented by: Oxycodone HCl (Roxicodone Immediate Rel) 5 - 10 mg PO Q4H PRN PRN Reason: Pain or Pre PT Stop: 09/23/19 16:14 Last Admin: 09/10/19 10:14 Dose: 10 mg Documented by: Sennosides (Senokot) 17.2 mg PO HS [facility] Stop: 10/09/19 20:59 Last Admin: 09/09/19 20:14 Dose: 17.2 mg Documented by: Tramadol HCl (Ultram) 50 - 100 mg PO Q4H PRN PRN Reason: Pain & Pre PT Stop: 10/09/19 15:30 Last Admin: 09/09/19 20:15 Dose: 100 mg Documented by: Umeclidinium/Vilanterol (Anoro Ellipta 62.5/25 Mcg Inh) 1 puffs INH DAILY [facility]; Protocol Stop: 10/10/19 08:59 Last Admin: 09/10/19 08:38 Dose: 1 puffs Documented by: Vitamin D (Vitamin D3) [facility] [place]: 10/10/19 08:59 Last Admin: 09/10/19 08:39 Dose: 1,000 units Documented by: Warfarin Sodium (Coumadin) 7.5 mg PO TuWeTh@1600 [facility] Stop: 10/09/19 16:59 Last Admin: 09/10/19 16:09 Dose: 7.5 mg Documented by: Warfarin Sodium (Coumadin) 3.75 mg PO SuMoFrSa@1600 [facility] Stop: 10/11/19 15:59
[2019-09-10] MEDS: SENNA 8.6 MG TAB PO SCH (20:24)
[2019-09-11] MEDS: OXYCODONE HCL IR 5 MG TAB (IMMEDIATE RELEASE) PO PRN ×5 (00:12→20:54)
[2019-09-11] MEDS: ACETAMINOPHEN 500 MG TAB PO SCH ×3 (04:56→21:57)
[2019-09-11 05:23] LABS: Hematocrit (blood only) 26.6 % (37-47); Hemoglobin 8.3 g/dL (12.0-16.0); Mean Corpuscular Hemoglobin 27.2 pg (25-34); Mean Corpuscular Hgb Conc 31.2 g/dL (32-36); Mean Corpuscular Volume 87.2 fL (80-100); Mean Platelet Volume 10.6 fL (7.4-10.4); Platelet Count 212 K/uL (130-400); RDW Coefficient of Variation 16.5 % (11.5-14.5); RDW Standard Deviation 52.4 fL (36.4-46.3); Red Blood Count 3.05 M/uL (4.2-5.4); White Blood Count 6.23 K/uL (4.8-10.8)
[2019-09-11 05:31] LABS: INR 1.2 (0.9-1.1)
[2019-09-11 05:52] LABS: BUN Creatinine Ratio 15.5 (10-20); Creatinine Clr Calc Pharmacy 46.8 ml/min; Est GFR (African American) 49.9; Est GFR (Non-African American) 43.1; Potassium 4.4 mmol/L (3.5-5.1)
[2019-09-11] MEDS: TRAMADOL HCL 50 MG TABLET PO PRN ×2 (07:29→19:42)
[2019-09-11] MEDS: METOPROLOL SUCC 50MG EXT REL TAB PO SCH (07:30)
[2019-09-11] MEDS: UMECLIDINIUM/VILANTEROL 62.5/25MCG 7 PUFFS/INHALER INH SCH (07:31)
[2019-09-11] MEDS: FLUTICASONE FUROATE 100MCG 14 PUFFS/INHALER INH SCH (07:32)
[2019-09-11] MEDS: MULTIVITAMIN TAB PO SCH (07:32)
[2019-09-11] MEDS: BuPROPion XL 300 MG TABCR PO SCH (07:32)
[2019-09-11] MEDS: CHOLECALCIFEROL 1,000 UNITS 25 MCG TAB PO SCH (07:33)
[2019-09-11] MEDS: LOSARTAN POTASSIUM 50 MG TAB PO SCH (07:33)
[2019-09-11] MEDS: CITALOPRAM 20 MG TAB PO SCH (07:34)
[2019-09-11] MEDS: DOCUSATE SODIUM 100 MG CAP PO SCH ×2 (07:34→19:45)
[2019-09-11] MEDS: NIFEdipine EXTENDED REL 30 MG TABCR PO SCH (07:35)
[2019-09-11] MEDS: CeleBREX 200 MG CAP PO SCH ×2 (07:35→20:21)
[2019-09-11] MEDS: CYANOCOBALAMIN 500 MCG TABLET (VITAMIN B-12) PO SCH (07:35)
--- NOTE | 2019-09-11 07:36 | Orthopedic Progress Note ---
Date of Service September 11, 2019 Assessment & Plan (1) S/P total knee arthroplasty: POD #2, Left TKA PT/ OT DVT proph- Resume home coumadin dosing D/C planning- Home w HH when stable As per medicine. Pain control Continues to need supplemental O2 via NC...2L Needs better pain control. Hgb continues to trend down, 8.3, will re check tomorrow AM. Check doppler to r/o DVT. Admission and Anticipated Discharge Date Admission Date: September 10, 2019 Subjective POD #2, Pain is main issue. Denies SOB, CP, N/V, Dizziness. Hgb continues to trend down at 8.3 this AM- Asymptomatic. On 2L O2, however she does use O2 at home as needed. INR 1.2 Physical Exam Physical Exam: Left knee silverlon c/d/i, no drainage. Toes/ ankle mobile. Calf quite tender this AM. A&Ox3. Results & Data ([facility]) Vital Signs (Past 12 Hours) Vital Signs Temp Pulse Resp BP Pulse Ox 09/11/19 07:18 36.7 C 65 18 137/61 97 09/10/19 23:55 37 C 70 18 119/72 97
[2019-09-11] MEDS: FERROUS SULFATE 325 MG TAB PO SCH (08:33)
[2019-09-11] MEDS: INSULIN ASPART 100 UNITS/ML 3 ML PEN SC SCH ×4 (09:44→21:31)
--- NOTE | 2019-09-11 09:54 | Ultrasound Report ---
US venous doppler LE LT HISTORY: 73 years-old Female Calf pain and swelling s/p TKA r/o DVT. Acute left lower leg pain and s welling COMPARISON: Left knee radiographs 09/09/2019 TECHNIQUE: Multiple real-time sonographic images of the left lower extremity deep venous structures w ere obtained assessing grayscale appearance, Halima spectral flow FINDINGS: Normal flow, compressibility, phasicity and augmentation of the left lower extremity deep venous stru ctures. IMPRESSION: No sonographic evidence of deep venous stenosis. ACT 112: Negative or not required by law. The above report was generated using voice recognition software. It may contain grammatical, syntax o r spelling errors. Electronically signed by: Salo Stewart M.D. 09/11/2019 9:53 AM
--- NOTE | 2019-09-11 11:59 | Hospitalist Progress Note ---
Date of Service September 11, 2019 Assessment & Plan (1) S/P total knee arthroplasty: Left knee arthroplasty POD #2 Management will be as per Ortho Denies any significant pain Acute blood loss anemia Complicated by recent surgery Hemoglobin dropped to 8.6 from 10. On 08/18/2019 We will repeat CBC tomorrow-hemoglobin is 8.3 as of 09/11/2019 Remains asymptomatic-we will recheck tomorrow (2) Atrial fibrillation: History of irregular heartbeats likely secondary to atrial fibrillation Preoperative EKG did not show any atrial fibrillation Heart rate remains controlled History of CHF likely diastolic in nature No symptoms of fluid overload Chest remains clear on examination (3) Chronic obstructive pulmonary disease: History of COPD on home oxygen Minimal wheezing involving the left base No shortness of breath and/or wheezing at rest (4) Asthma: No acute exacerbation (5) On home oxygen therapy: As above (6) Hypertension: Blood pressure seems to be controlled DVT prophylaxis As per Ortho Coumadin has been restarted INR 1.2 as of 09/11/2019 Admission and Anticipated Discharge Date Admission Date: September 10, 2019 Subjective The patient was seen and examined in medical floor She is status post left total knee arthroplasty, POD #1 Denies any significant symptoms 09/11/2019 The patient was seen and examined in medical floor She complains today of some pain in the left knee, status post POD #2 for left knee replacement Denies any other symptoms Review of Systems Review of Systems: All systems reviewed and are unremarkable except as noted below Musculoskeletal: Left knee swelling and pain with movement Physical Exam Physical Exam: Sitting on a chair with some discomfort due to left knee pain Constitutional: WD/WN, vitals as above Eyes: PERRL, conjunctivae normal, anicteric sclerae ENMT: external ear and nose normal, oropharynx normal Neck: trachea midline, no thyromegaly Respiratory: no respiratory distress Auscultation: lungs clear to auscultation bilaterally and + diminished lung sounds (With minimal rhonchi left base) Cardiovascular: Rate/Rhythm: regular rate and regular rhythm Heart Sounds: no murmur Gastrointestinal (Abdomen): Inspection/Auscultation: abdomen normal to inspection and normal bowel sounds; abdomen not distended Musculoskeletal: Knee: + limited ROM of knee (Left knee with pain) Neurologic: Alert, awake and oriented x3 Results & Data Results & Data ([place]) Vital Signs (Past 12 Hours) Vital Signs Temp Pulse Resp BP Pulse Ox 09/11/19 07:18 36.7 C 65 18 137/61 97 Laboratory Results Short CBC 09/11/19 Range/Units 04:59 WBC 6.23 (4.8-10.8) K/uL Hgb 8.3 L (12.0-16.0) g/dL Hct 26.6 L (37-47) % Plt Count 212 (130-400) K/uL BMP 09/11/19 04:59 Sodium 140 Potassium 4.4 Chloride 109 H Carbon Dioxide 25 BUN 19 H Creatinine 1.24 H Glucose 108 H Calcium 8.0 L Medications Administered Current Inpatient Medications Acetaminophen (Tylenol) 1,000 mg PO Q8 [facility] Stop: 10/09/19 21:59 Last Admin: 09/11/19 04:56 Dose: 1,000 mg Documented by: Benzonatate (Tessalon Perle) 100 mg PO TID PRN PRN Reason: Cough Stop: 10/09/19 15:30 Bisacodyl (Dulcolax) 10 mg CA DAILY PRN PRN Reason: Constipation Stop: 10/09/19 15:30 Bupropion HCl (Wellbutrin-Xl) 300 mg PO QAM [facility] Stop: 10/10/19 08:59 Last Admin: 09/11/19 07:32 Dose: 300 mg Documented by: Celecoxib (Celebrex) 200 mg PO BID [facility] Stop: 10/09/19 20:59 Last Admin: 09/11/19 07:35 Dose: 200 mg Documented by: Citalopram Hydrobromide (Celexa) 20 mg PO QAM [facility] Stop: 10/10/19 08:59 Last Admin: 09/11/19 07:34 Dose: 20 mg Documented by: Cyanocobalamin (Vitamin B-12) 1,000 mcg PO QAM [facility] Stop: 10/10/19 08:59 Last Admin: 09/11/19 07:35 Dose: 1,000 mcg Documented by: Diphenhydramine HCl (Benadryl Capsule) 25 mg PO Q8H PRN PRN Reason: Itching Stop: 10/09/19 15:30 Docusate Sodium (Colace) 100 mg PO BID [facility] Stop: 10/09/19 20:59 Last Admin: 09/11/19 07:34 Dose: 100 mg Documented by: Ferrous Sulfate (Feosol) 325 [facility]REAT [facility] [place] Stop: 10/11/19 08:59 Last Admin: 09/11/19 08:33 Dose: 325 mg Documented by: Fluticasone Furoate (Arnuity Ellipta 100mcg) 1 puffs INH DAILY [facility]; Protocol Stop: 10/10/19 08:59 Last Admin: 09/11/19 07:32 Dose: 1 puffs Documented by: Hydromorphone HCl (Dilaudid) 0.5 mg IV Q4H PRN PRN Reason: Pain or Pre PT Stop: 09/23/19 15:30 Insulin Aspart (Novolog Flexpen) 0 units SC ACHS [facility]; Protocol Stop: 10/09/19 16:59 Last Admin: 09/11/19 09:44 Dose: Not Given Documented by: Lorazepam (Ativan) 1.5 mg PO TID PRN PRN Reason: Anxiety Stop: 10/09/19 15:30 Last Admin: 09/09/19 23:50 Dose: 1.5 mg Documented by: Losartan Potassium (Cozaar) 50 mg PO [facility] Stop: 10/10/19 08:59 Last Admin: 09/11/19 07:33 Dose: 50 mg Documented by: Magnesium Hydroxide (Milk Of Magnesia) 30 ml PO Q6H PRN PRN Reason: Constipation Stop: 10/09/19 16:14 Metoprolol Succinate (Toprol Xl) 100 mg PO [facility] Stop: 10/10/19 08:59 Last Admin: 09/11/19 07:30 Dose: 100 mg Documented by: Miscellaneous Information (Consult Glycemic Management Pharmacy) 1 ea N/A UD PRN PRN Reason: Consult Stop: 10/09/19 16:14 Multivitamins (Multivitamin Tab) 1 tab PO [facility] Stop: 10/10/19 08:59 Last Admin: 09/11/19 07:32 Dose: 1 tab Documented by: Naloxone HCl (Narcan) 0.1 mg IV Q5M PRN PRN Reason: Oversedation/Resp Depression Stop: 10/09/19 15:30 Nifedipine (Procardia Xl) 30 mg PO [facility] Stop: 10/10/19 08:59 Last Admin: 09/11/19 07:35 Dose: 30 mg Documented by: Oxycodone HCl (Roxicodone Immediate Rel) 5 - 10 mg PO Q4H PRN PRN Reason: Pain or Pre PT Stop: 09/23/19 16:14 Last Admin: 09/11/19 04:56 Dose: 10 mg Documented by: Sennosides (Senokot) 17.2 mg PO HS [facility] Stop: 10/09/19 20:59 Last Admin: 09/10/19 20:24 Dose: 17.2 mg Documented by: Tramadol HCl (Ultram) 50 - 100 mg PO Q4H PRN PRN Reason: Pain & Pre PT Stop: 10/09/19 15:30 Last Admin: 09/11/19 07:29 Dose: 100 mg Documented by: Umeclidinium/Vilanterol (Anoro Ellipta 62.5/25 Mcg Inh) 1 puffs INH DAILY [facility]; Protocol Stop: 10/10/19 08:59 Last Admin: 09/11/19 07:31 Dose: 1 puffs Documented by: Vitamin D (Vitamin D3) 1,000 units [facility] [place] [facility] Stop: 10/10/19 08:59 Last Admin: 09/11/19 07:33 Dose: 1,000 units Documented by: Warfarin Sodium (Coumadin) 7.5 mg PO TuWeTh@1600 [facility] Stop: 10/09/19 16:59 Last Admin: 09/10/19 16:09 Dose: 7.5 mg Documented by: Warfarin Sodium (Coumadin) 3.75 mg PO SuMoFrSa@1600 [facility] Stop: 10/11/19 15:59
[2019-09-11] MEDS ORDERED: WARFARIN SOD 3 MG TAB PO SCH (16:00)
[2019-09-11] MEDS: SENNA 8.6 MG TAB PO SCH (19:45)
[2019-09-11] MEDS: HYDROmorphone INJ 0.5 MG/0.5 ML SYR IV PRN (22:27)
[2019-09-12] MEDS: OXYCODONE HCL IR 5 MG TAB (IMMEDIATE RELEASE) PO PRN ×2 (02:40→13:17)
[2019-09-12] MEDS: ACETAMINOPHEN 500 MG TAB PO SCH ×2 (05:53→13:17)
[2019-09-12 06:00] LABS: Hematocrit (blood only) 24.8 % (37-47); Hemoglobin 8.1 g/dL (12.0-16.0); Mean Corpuscular Hemoglobin 28.5 pg (25-34); Mean Corpuscular Hgb Conc 32.7 g/dL (32-36); Mean Corpuscular Volume 87.3 fL (80-100); Mean Platelet Volume 10.9 fL (7.4-10.4); Platelet Count 207 K/uL (130-400); RDW Coefficient of Variation 16.6 % (11.5-14.5); RDW Standard Deviation 52.5 fL (36.4-46.3); Red Blood Count 2.84 M/uL (4.2-5.4); White Blood Count 6.89 K/uL (4.8-10.8)
[2019-09-12 06:07] LABS: INR 1.4 (0.9-1.1); Prothrombin Time 14.2 Seconds (9.0-12.0)
[2019-09-12 06:20] VITALS: BP 143/74; PULSE 87; TEMP 98.6; O2SAT 97
[2019-09-12] MEDS: FLUTICASONE FUROATE 100MCG 14 PUFFS/INHALER INH SCH (07:30)
[2019-09-12] MEDS: UMECLIDINIUM/VILANTEROL 62.5/25MCG 7 PUFFS/INHALER INH SCH (07:30)
[2019-09-12] MEDS: FERROUS SULFATE 325 MG TAB PO SCH (07:31)
[2019-09-12] MEDS: NIFEdipine EXTENDED REL 30 MG TABCR PO SCH (07:32)
[2019-09-12] MEDS: METOPROLOL SUCC 50MG EXT REL TAB PO SCH (07:32)
[2019-09-12] MEDS: CYANOCOBALAMIN 500 MCG TABLET (VITAMIN B-12) PO SCH (07:33)
[2019-09-12] MEDS: CHOLECALCIFEROL 1,000 UNITS 25 MCG TAB PO SCH (07:34)
[2019-09-12] MEDS: BuPROPion XL 300 MG TABCR PO SCH (07:34)
[2019-09-12] MEDS: HYDROmorphone INJ 0.5 MG/0.5 ML SYR IV PRN (07:34)
[2019-09-12] MEDS: LOSARTAN POTASSIUM 50 MG TAB PO SCH (07:36)
[2019-09-12] MEDS: CeleBREX 200 MG CAP PO SCH (07:36)
[2019-09-12] MEDS: DOCUSATE SODIUM 100 MG CAP PO SCH (07:37)
[2019-09-12] MEDS: CITALOPRAM 20 MG TAB PO SCH (07:37)
[2019-09-12] MEDS: MULTIVITAMIN TAB PO SCH (07:37)
--- NOTE | 2019-09-12 07:47 | Orthopedic Progress Note ---
Date of Service September 12, 2019 Assessment & Plan (1) S/P total knee arthroplasty: 73 yo female stable POD #3 s/p left TKA, post-op anemia Hgb appears stable at 8.1 1. Med management 2. DVT prophylaxis- Coumadin- pt checks own INR at home and reports to [facility] clinic, SCDs 3. PT/OT 4. D/C planning- home w/ HH Admission and Anticipated Discharge Date Admission Date: September 10, 2019 Subjective Pt with c/o moderate pain in knee Physical Exam Physical Exam: Mild drainage, nurse removed Silverlon and applied another (#3), if drains through again consider regular dressing or Prevena. Toes mobile, NVI, tenderness lower leg, neg Doppler Results & Data ([facility]) Vital Signs (Past 12 Hours) Vital Signs Temp Pulse Resp BP BP Pulse Ox 09/12/19 06:19 37 C 87 20 143/74 H 97 09/11/19 22:53 36.9 C 90 18 142/86 H 95 09/11/19 20:15 140/79 Laboratory Results 09/12/19 09/12/19 09/12/19 Range/Units 06:56 05:11 05:11 WBC 6.89 (4.8-10.8) K/uL RBC 2.84 L (4.2-5.4) M/uL Hgb 8.1 L (12.0-16.0) g/dL Hct 24.8 L (37-47) % MCV 87.3 (80-100) fL MCH 28.5 (25-34) pg MCHC 32.7 (32-36) g/dL RDW Std Deviation 52.5 H (36.4-46.3) fL RDW Coeff of Dragan 16.6 H (11.5-14.5) % Plt Count 207 (130-400) K/uL MPV 10.9 H (7.4-10.4) fL PT 14.2 H (9.0-12.0) Seconds INR 1.4 H (0.9-1.1) POC Glucose 151 H (70-99) mg/dl 09/11/19 09/11/19 09/11/19 Range/Units 20:50 17:01 11:54 WBC (4.8-10.8) K/uL RBC (4.2-5.4) M/uL Hgb (12.0-16.0) g/dL Hct (37-47) % MCV (80-100) fL MCH (25-34) pg MCHC (32-36) g/dL RDW Std Deviation (36.4-46.3) fL RDW Coeff of Dragan (11.5-14.5) % Plt Count (130-400) K/uL MPV (7.4-10.4) fL PT (9.0-12.0) Seconds INR (0.9-1.1) POC Glucose 190 H 152 H 156 H (70-99) mg/dl 09/11/19 Range/Units 07:59 WBC (4.8-10.8) K/uL RBC (4.2-5.4) M/uL Hgb (12.0-16.0) g/dL Hct (37-47) % MCV (80-100) fL MCH (25-34) pg MCHC (32-36) g/dL RDW Std Deviation (36.4-46.3) fL RDW Coeff of Dragan (11.5-14.5) % Plt Count (130-400) K/uL MPV (7.4-10.4) fL PT (9.0-12.0) Seconds INR (0.9-1.1) POC Glucose 112 H (70-99) mg/dl
[2019-09-12] MEDS: INSULIN ASPART 100 UNITS/ML 3 ML PEN SC SCH ×2 (08:07→12:41)
--- NOTE | 2019-09-12 14:03 | Hospitalist Progress Note ---
Date of Service September 12, 2019 Assessment & Plan (1) S/P total knee arthroplasty: Left knee arthroplasty POD #3 Management will be as per Ortho Denies any significant pain Will be discharged home today as per Ortho Acute blood loss anemia Complicated by recent surgery Hemoglobin dropped to 8.6 from 10. On 08/18/2019 We will repeat CBC tomorrow-hemoglobin is 8.3 as of 09/11/2019 Remains asymptomatic-we will recheck tomorrow Hemoglobin is 8.1 as of 09/12/2019 (2) Atrial fibrillation: History of irregular heartbeats likely secondary to atrial fibrillation Preoperative EKG did not show any atrial fibrillation Heart rate remains controlled without any symptoms History of CHF likely diastolic in nature No symptoms of fluid overload Chest remains clear on examination Denies any shortness of breath (3) Chronic obstructive pulmonary disease: History of COPD on home oxygen Minimal wheezing involving the left base No shortness of breath and/or wheezing at rest (4) Asthma: No acute exacerbation (5) On home oxygen therapy: As above (6) Hypertension: Blood pressure seems to be controlled DVT prophylaxis As per Ortho Coumadin has been restarted INR 1.4 as of 09/12/2019 Admission and Anticipated Discharge Date Admission Date: September 10, 2019 Subjective The patient was seen and examined in medical floor She is status post left total knee arthroplasty, POD #1 Denies any significant symptoms 09/11/2019 The patient was seen and examined in medical floor She complains today of some pain in the left knee, status post POD #2 for left knee replacement Denies any other symptoms 09/12/2019 Patient was seen and examined in medical floor She has been complaining of some pain left knee Denies any chest chest pain, palpitation, wheezing or shortness of breath Review of Systems Review of Systems: All systems reviewed and are unremarkable except as noted below Musculoskeletal: Left knee swelling and pain with movement Physical Exam Physical Exam: Sitting on a chair with some pain in the left knee Constitutional: WD/WN, vitals as above Eyes: PERRL, conjunctivae normal, anicteric sclerae ENMT: external ear and nose normal, oropharynx normal Neck: trachea midline, no thyromegaly Respiratory: no respiratory distress Auscultation: lungs clear to auscultation bilaterally and + diminished lung sounds (With minimal rhonchi left base) Cardiovascular: Rate/Rhythm: regular rate and regular rhythm Heart Sounds: no murmur Extremities: + pedal edema Gastrointestinal (Abdomen): Inspection/Auscultation: abdomen normal to inspection and normal bowel sounds; abdomen not distended Musculoskeletal: Knee: + limited ROM of knee (Left knee with pain) Left knee swelling and pain with movement status post arthroplasty Neurologic: moves all extremities; no focal motor deficits Results & Data Results & Data ([place]) Vital Signs (Past 12 Hours) Vital Signs Temp Pulse Pulse Resp BP BP Pulse Ox 09/12/19 11:35 37 C 85 87 20 140/79 143/74 H 97 09/12/19 06:19 37 C 87 20 143/74 H 97 Laboratory Results Short CBC 09/12/19 Range/Units 05:11 WBC 6.89 (4.8-10.8) K/uL Hgb 8.1 L (12.0-16.0) g/dL Hct 24.8 L (37-47) % Plt Count 207 (130-400) K/uL Medications Administered Current Inpatient Medications Acetaminophen (Tylenol) 1,000 mg PO Q8 [facility] Stop: 10/09/19 21:59 Last Admin: 09/12/19 13:17 Dose: 1,000 mg Documented by: Benzonatate (Tessalon Perle) 100 mg PO TID PRN PRN Reason: Cough Stop: 10/09/19 15:30 Bisacodyl (Dulcolax) 10 mg [place] DAILY PRN PRN Reason: Constipation Stop: 10/09/19 15:30 Bupropion HCl (Wellbutrin-Xl) 300 mg PO QAM [facility] Stop: 10/10/19 08:59 Last Admin: 09/12/19 07:34 Dose: 300 mg Documented by: Celecoxib (Celebrex) 200 mg PO BID [facility] Stop: 10/09/19 20:59 Last Admin: 09/12/19 07:36 Dose: 200 mg Documented by: Citalopram Hydrobromide (Celexa) 20 mg PO QAM [facility] Stop: 10/10/19 08:59 Last Admin: 09/12/19 07:37 Dose: 20 mg Documented by: Cyanocobalamin (Vitamin B-12) 1,000 mcg PO QAM [facility] Stop: 10/10/19 08:59 Last Admin: 09/12/19 07:33 Dose: 1,000 mcg Documented by: Diphenhydramine HCl (Benadryl Capsule) 25 mg PO Q8H PRN PRN Reason: Itching Stop: 10/09/19 15:30 Docusate Sodium (Colace) 100 mg PO BID [facility] Stop: 10/09/19 20:59 Last Admin: 09/12/19 07:37 Dose: 100 mg Documented by: Ferrous Sulfate (Feosol) 325 mg PO [facility] Stop: 10/11/19 08:59 Last Admin: 09/12/19 07:31 Dose: 325 mg Documented by: Fluticasone Furoate (Arnuity Ellipta 100mcg) 1 puffs INH DAILY [facility]; Protocol Stop: 10/10/19 08:59 Last Admin: 09/12/19 07:30 Dose: 1 puffs Documented by: Hydromorphone HCl (Dilaudid) 0.5 mg IV Q4H PRN PRN Reason: Pain or Pre PT Stop: 09/23/19 15:30 Last Admin: 09/12/19 07:34 Dose: 0.5 mg Documented by: Insulin Aspart (Novolog Flexpen) 0 units SC [facility]; Protocol Stop: 10/09/19 16:59 Last Admin: 09/12/19 12:41 Dose: 1 units Documented by: Lorazepam (Ativan) 1.5 mg PO TID PRN PRN Reason: Anxiety Stop: 10/09/19 15:30 Last Admin: 09/09/19 23:50 Dose: 1.5 mg Documented by: Losartan Potassium (Cozaar) 50 mg PO [facility] Stop: 10/10/19 08:59 Last Admin: 09/12/19 07:36 Dose: 50 mg Documented by: Magnesium Hydroxide (Milk Of Magnesia) 30 ml PO Q6H PRN PRN Reason: Constipation Stop: 10/09/19 16:14 Metoprolol Succinate (Toprol Xl) 100 mg PO [facility] Stop: 10/10/19 08:59 Last Admin: 09/12/19 07:32 Dose: 100 mg Documented by: Miscellaneous Information (Consult Glycemic Management Pharmacy) 1 ea N/A UD PRN PRN Reason: Consult Stop: 10/09/19 16:14 Multivitamins (Multivitamin Tab) 1 tab PO [facility] Stop: 10/10/19 08:59 Last Admin: 09/12/19 07:37 Dose: 1 tab Documented by: Naloxone HCl (Narcan) 0.1 mg IV Q5M PRN PRN Reason: Oversedation/Resp Depression Stop: 10/09/19 15:30 [facility]ed[facility] ([facility]l) [facility] [place] Stop: 10/10/19 08:59 Last Admin: 09/12/19 07:32 Dose: 30 mg Documented by: Oxycodone HCl (Roxicodone Immediate Rel) 5 - 10 mg PO Q4H PRN PRN Reason: Pain or Pre PT Stop: 09/23/19 16:14 Last Admin: 09/12/19 13:17 Dose: 10 mg Documented by: Sennosides (Senokot) 17.2 mg PO [facility] Stop: 10/09/19 20:59 Last Admin: 09/11/19 19:45 Dose: Not Given Documented by: Tramadol HCl (Ultram) 50 - 100 mg PO Q4H PRN PRN Reason: Pain & Pre PT Stop: 10/09/19 15:30 Last Admin: 09/11/19 19:42 Dose: 100 mg Documented by: Umeclidinium/Vilanterol (Anoro Ellipta 62.5/25 Mcg Inh) 1 puffs INH DAILY [facility]; Protocol Stop: 10/10/19 08:59 Last Admin: 09/12/19 07:30 Dose: 1 puffs Documented by: Vitamin D (Vitamin D3) 1,000 [facility] [place] Stop: 10/10/19 08:59 Last Admin: 09/12/19 07:34 Dose: 1,000 units Documented by: Warfarin Sodium (Coumadin) 7.5 mg PO TuWeTh@1600 [facility] Stop: 10/09/19 16:59 Last Admin: 09/10/19 16:09 Dose: 7.5 mg Documented by: Warfarin Sodium (Coumadin) 2.5 mg PO SuMoFrSa@1600 [facility]; Protocol Stop: 10/12/19 15:59 Warfarin Sodium (Coumadin) 1.25 mg PO SuMoFrSa@1600 [facility]; Protocol Stop: 10/12/19 15:59
[2019-09-12] MEDS ORDERED: WARFARIN SOD 1.25 MG TAB PO SCH (16:00)
[2019-09-12] MEDS ORDERED: WARFARIN SOD 2.5 MG TAB PO SCH (16:00)
--- NOTE | 2019-09-25 18:30 | Discharge Summary (DS) ---
HISTORY OF PRESENT ILLNESS: This is a 73-year-old female patient of Dr. Longo's complaining of chronic left knee pain, longstanding, now progressively getting worse. The patient failed conservative treatment and elected to proceed with a left total knee arthroplasty. PAST MEDICAL HISTORY: Congestive heart failure, hypertension, irregular heartbeat, asthma, COPD, anxiety, diabetes mellitus, neck problems, acid reflux, and kidney stones. POSTOPERATIVE COURSE: The patient underwent a left total knee arthroplasty on 09/09/2019. On postoperative day #1, her hemoglobin did drop to 8.3. This was watched closely. She was asymptomatic. She denied any dizziness or chest pain. Vital signs were stable. The patient was also on Coumadin for postop DVT prophylaxis. On discharge, her Coumadin was about 1.2. By postoperative day #3, her hemoglobin was stable in the low 8s. Again, she was continued to be asymptomatic and was progressing well in physical therapy. The patient did have some bleeding through her Silverlon dressing, it was changed approximately 3 times, again stable on discharge. PHYSICAL EXAMINATION: On discharge, left knee Silverlon dressing was clean, dry and intact with just a little bit of bloody drainage through the central window. She had no calf tenderness. Negative Homans sign. Toes and ankle were mobile. Neurologically and neurovascularly, she is intact in her left lower extremity. DIAGNOSES: Status post left total knee arthroplasty, congestive heart failure, hypertension, irregular heartbeat, asthma, chronic obstructive pulmonary disease, anxiety, diabetes mellitus, neck problems, acid reflux, and kidney stones. PLAN: The patient was discharged home with home health services. She will continue her preadmission medications with the addition of pain medications. She will follow up with her Coumadin clinic concerning her Coumadin levels and adjustments next week as well as follow up with her family physician due to her postop anemia. The patient will follow up with Dr. Longo as scheduled as an outpatient.
== END 2019-09-12 14:42 | disposition home health service (06) ==
LOC: ASU 09:00 → 3E 09:00

== ENCOUNTER 2022-08-16 06:50 | Observation (INO) ==
--- NOTE | 2022-07-05 12:54 | Communication Note ---
Patient scheduled for Right TKA 07/26/[address] Longo at [facility]. Received message from Kisha at surgeon's office that patient tested Covid positive yesterday. She did not indicate if this was formal testing or home testing. Advised Kisha that if not done already, have patient obtain formal Covid testing and forward results to PAT. As long as patient does not have Covid symptoms and feels back to baseline by DOS- pt can proceed as scheduled from Covid perspective once formal testing results received.
--- NOTE | 2022-07-12 09:48 | PAT Medication Instructions ---
Medication Instructions Date of Service July 12, 2022 Home Medications benzonatate 100 mg capsule 100 mg PO TID PRN bupropion HCl 150 mg 24 hr tablet, extended release 300 mg PO QAM cholecalciferol (vitamin D3) 25 mcg (1,000 unit) capsule (Vitamin D3) 25 mcg PO QAM citalopram 20 mg tablet 20 mg PO QAM cyanocobalamin (vitamin B-12) 1,000 mcg tablet,extended release (Vitamin B-12 ER) 1,000 mcg PO QAM fluticasone fur. 100 mcg-umeclid 62.5 mcg-vilant 25 mcg inhalat.powder (Trelegy Ellipta) 1 inh inhalation QAM lorazepam 0.5 mg tablet 1.5 mg PO TID PRN losartan 50 mg tablet 50 mg PO QAM metoprolol succinate 100 mg tablet,extended release 24 hr 100 mg PO QAM nifedipine 30 mg tablet,extended release 24 hr 30 mg PO QAM acetaminophen 500 mg tablet 1,000 mg PO Q8H albuterol sulfate 90 mcg/actuation aerosol inhaler (ProAir HFA) 1 puff inhalation TID PRN apixaban 5 mg tablet (Eliquis) 5 mg PO BID semaglutide 0.25 mg or 0.5 mg (2 mg/3 mL) subcutaneous pen injector (Ozempic) 0.5 mg subcut Q7D zinc 15 mg tablet 15 mg PO QAM Continue as directed semaglutide 0.25 mg or 0.5 mg (2 mg/3 mL) subcutaneous pen injector (Ozempic) 0.5 mg subcut Q7D ASK your prescriber and surgeon apixaban 5 mg tablet (Eliquis) 5 mg PO BID(in order for spinal or epidural anesthesia, Eliquis needs to be stopped 72 hours/3 days before surgery. Please check if okay with doctor that prescribes this to you) DO NOT take the morning of surgery benzonatate 100 mg capsule 100 mg PO TID PRN cholecalciferol (vitamin D3) 25 mcg (1,000 unit) capsule (Vitamin D3) 25 mcg PO QAM cyanocobalamin (vitamin B-12) 1,000 mcg tablet,extended release (Vitamin B-12 ER) 1,000 mcg PO QAM losartan 50 mg tablet 50 mg PO QAM zinc 15 mg tablet 15 mg PO QAM Take morning of surgery With a small sip of water, OTHERWISE NOTHING TO EAT OR DRINK AFTER MIDNIGHT: bupropion HCl 150 mg 24 hr tablet, extended release 300 mg PO QAM citalopram 20 mg tablet 20 mg PO QAM fluticasone fur. 100 mcg-umeclid 62.5 mcg-vilant 25 mcg inhalat.powder (Trelegy Ellipta) 1 inh inhalation QAM lorazepam 0.5 mg tablet 1.5 mg PO TID PRN(if needed) metoprolol succinate 100 mg tablet,extended release 24 hr 100 mg PO QAM nifedipine 30 mg tablet,extended release 24 hr 30 mg PO QAM acetaminophen 500 mg tablet 1,000 mg PO Q8H albuterol sulfate 90 mcg/actuation aerosol inhaler (ProAir HFA) 1 puff inhalation TID PRN(use if needed; please bring with you to hospital day of surgery if possible) Take evening before surgery benzonatate 100 mg capsule 100 mg PO TID PRN lorazepam 0.5 mg tablet 1.5 mg PO TID PRN(if needed) acetaminophen 500 mg tablet 1,000 mg PO Q8H albuterol sulfate 90 mcg/actuation aerosol inhaler (ProAir HFA) 1 puff inhalation TID PRN(if needed) Other Notes If you have any questions please call us at [phone] or [phone] or [phone] or [phone]
--- NOTE | 2022-07-13 10:02 | Anesthesiology Consultation ---
Date of Service July 13, 2022 Assessment & Plan (1) Encounter for pre-operative examination: - check BSG am DOS. - dizziness with falls, most recently 04/2022-states spoke with PCP. PAT testing to be faxed to PCP. - awaiting PCP pre-op evaluation 07/20/22. - COVID positive on home test 07/05/22: pt reports residual cough, 3 remaining days of prednisone dose. - s/p L TKA 09/09/19 L3-L4 1 attempt + PNB. - urology clearance 07/09/22 [facility]: "...no urological contraindication to ortho surgery...push back cysto by 1 month..." - Case discussed in detail with Dr. Mcclain who agreed with optimization note sent to PCP and advised awaiting PCP pre-op note on patient symptom/exam status. - Outpatient joint assessment: Patient is currently scheduled for inpatient pathway. If re-evaluated pending system levels during current pandemic/surgeon requests outpatient pathway, patient is not recommended candidate for outpatient joint program from anesthesia standpoint. Chart Review Chart Review: Pending: Refer to Additional Notes / Consult section and Patient seen in Pre Admission Testing Teaching & Discussion Pre-Anesthesia Teaching/Discussion Notes: Instructed NPO after midnight before surgery, except medications with 15 cc of water. Medication instructions provided according to the PAT guidelines. History Surgery Operation Date: 07/26/22 14:05 Proposed Procedures p Right Total Knee Arthroplasty - Ru Longo MD Height/Weight Height: 5 ft 4 in Weight: 96.8 kg Allergies Allergy/AdvReac Type Severity Reaction Status Date / Time codeine Allergy Headache Verified 07/12/22 08:37 loracarbef Allergy UNKNOWN Verified 07/12/22 08:34 promethazine Allergy UNKNOWN Verified 07/12/22 08:34 spironolactone Allergy UNKNOWN Verified 07/12/22 08:34 tizanidine Allergy UNKNOWN Verified 07/12/22 08:34 gabapentin AdvReac Mild HEADACHE Verified 07/12/22 08:34 lisinopril AdvReac Cough Verified 07/12/22 08:36 pregabalin AdvReac Hives Verified 07/12/22 08:34 Medications Home Medications Medication Instructions Recorded Confirmed Last Taken benzonatate 100 mg capsule 100 mg PO TID PRN Cough 08/14/19 07/12/22 09/09/19 07:00 bupropion HCl 150 mg 24 hr tablet, 300 mg PO QAM 08/14/19 07/12/22 09/09/19 07:00 extended release cholecalciferol (vitamin D3) 25 25 mcg PO QAM 08/14/19 07/12/22 09/08/19 10:00 mcg (1,000 unit) capsule (Vitamin D3) citalopram 20 mg tablet 20 mg PO QAM 08/14/19 07/12/22 09/09/19 07:00 cyanocobalamin (vitamin B-12) 1,000 mcg PO QAM 08/14/19 07/12/22 09/08/19 10:00 1,000 mcg tablet,extended release (Vitamin B-12 ER) fluticasone fur. 100 mcg-umeclid 1 inh inhalation [facility] 08/14/19 07/12/22 09/09/19 07:00 62.5 mcg-vilant 25 mcg inhalat.powder (Trelegy Ellipta) lorazepam 0.5 mg tablet 1.5 mg PO TID PRN Anxiety 08/14/19 07/12/22 09/09/19 07:00 losartan 50 mg tablet 50 mg PO QA 08/14/19 07/12/22 09/08/19 10:00 metoprolol succinate 100 mg 100 mg PO [facility] 08/14/19 07/12/22 Unknown tablet,extended release 24 hr nifedipine 30 mg tablet,extended 30 mg PO QA 08/14/19 07/12/22 Unknown release 24 hr acetaminophen 500 mg tablet 1,000 mg PO Q8H 07/12/22 07/12/22 Unknown albuterol sulfate 90 mcg/actuation 1 puff inhalation TID PRN 07/12/22 07/12/22 Unknown aerosol inhaler (ProAir HFA) Shortness Of Breath apixaban 5 mg tablet (Eliquis) 5 mg PO BID 07/12/22 07/12/22 Unknown semaglutide 0.25 mg or 0.5 mg (2 0.5 mg subcut Q7D 07/12/22 07/12/22 Unknown mg/3 mL) subcutaneous pen injector (Ozempic) zinc 15 mg tablet 15 mg PO QAM 07/12/22 07/12/22 Unknown Past Medical History Medical History Anxiety Asthma last rescue inhaler use this morning Atrial fibrillation managed by PCP; on Eliquis Chronic back pain Chronic obstructive pulmonary disease recently exacerbated with URI Congestive heart failure Single episode when dx with afib Depression Diabetes mellitus, type 2 NIDDM GERD (gastroesophageal reflux disease) daily symptoms, takes TUMs routinely, denies nocturnal symptoms Hearing deficit History of COVID-2019, tested at [facility], hospitalized for 1 night; chills, no appetite, body aches, headache, low grade fever, cough>resolved; 07/05/22: residual cough Hypertension controlled, stable per pt Kidney stones hx On home oxygen therapy 2LPM HS PRN Unintentional weight loss reports 70 lb wt loss over 2 years "no appetite" Patient denies h/o stroke, seizures, heart attack, blood clots or blood transfusions. Exercise / Class Metabolic Activity III < 4 Walking/Shop/Light housework (SOB with usual activities, ongoing x yrs, denies change or worsening) Past Family History Family History Sister Diabetes Past Surgical History Surgical History H/O bilateral oophorectomy History of arthroscopy LEFT KNEE History of bladder surgery BLADDER TACK History of breast biopsy LEFT-benign History of cholecystectomy History of colonoscopy History of esophagogastroduodenoscopy (EGD) History of hysterectomy History of left knee replacement 09/09/2019 [facility] History of lithotripsy History of lumbar surgery for reflex sympathetic dystrophy History of tooth extraction Hx of bilateral cataract extraction Past Anesthesia History No Hx of Anesthesia Complications and No Family Hx of Anesthesia Complications History of PONV No Hx of PONV and No Hx of Motion Sickness Social History Smoking Status: Former smoker Do You Dip or Chew Tobacco: No Smoking End Date: 23 years ago Hx Alcohol Use: Yes Alcohol type: wine alcohol intake frequency: holidays/special occasions only Hx Substance Use: No substance use type: does not use Review of Systems Nonproductive cough: Increased last week with associated wheezing. Home test was positive, rapid test negative at PCP. Snoring and witnessed apneas-told sleep study was borderline in past. Patient denies chest pain, fever, chills, or palpitations. Physical Exam Vital Signs Vitals BP 126/78 HR 84 SP02 96% on RA RESP 18 Physical Full cervical extension range of motion without pain TMD 3.5 finger breadths Mallampati Score 3 Dentition: edentulous, full upper and lower dentures Lungs: normal respiratory effort. Good air movement, mild end expiratory wheezes in lower lobes, no rales or rhonchi Cardiac: regular rate and rhythm, no murmurs noted Carotid arteries: negative bruit bilat Lab Results Anesthesia Preop Results Results Anesthesia Widget: WBC 13.35 K/ul (4.8-10.8) H 07/13/22 Hgb 12.2 g/dl (12.0-16.0) 07/13/22 Hct 35.7 % (37.0-47.0) L 07/13/22 Plt 233 K/uL (130-400) 07/13/22 Na 138 mmol/L (136-145) 07/13/22 K 3.9 mmol/L (3.5-5.1) 07/13/22 Cl 98 mmol/L (98-107) 07/13/22 CO2 33 mmol/L (21-32) H 07/13/22 BUN 16 mg/dl (6-23) 07/13/22 Creat 1.30 mg/dl (0.6-1.2) H 07/13/22 Glucose Level 151 mg/dl (70-99(Fasting)) H 07/13/22 PT 11.1 Seconds (9.0-12.0) 07/13/22 PTT 22.4 Seconds (21.0-31.0) 07/13/22 INR 1.0 (0.9-1.1) 07/13/22 HA1c 6.9 % (4.5-5.6) H 07/13/22 Urine Color Yellow 07/13/22 Urine Appearance Turbid (Clear) A 07/13/22 Urine pH 5.5 (4.5-7.5) 07/13/22 Urine Specific Hoffman 1.018 (1.000-1.030) 07/13/22 Urine Protein 1+ (Negative) H 07/13/22 Urine Glucose (UA) Negative (Negative) 07/13/22 Urine Ketones Trace (Negative) H 07/13/22 Urine Blood 3+ (Negative) H 07/13/22 Urine Nitrite Positive (Negative) A 07/13/22 Urine Bilirubin Negative (Negative) 07/13/22 Urine Urobilinogen Negative (Negative) 07/13/22 Urine Leukocyte Esterase 3+ (Negative) H 07/13/22 Urine WBC (Auto) >30 /hpf (0-5) H 07/13/22 Urine RBC (Auto) >30 /hpf (0-4) H 07/13/22 Urine Hyaline Casts (Auto) 1-5 /lpf (0-5) 07/13/22 Urine Epithelial Cells (Auto) >30 /lpf (0-5) H 07/13/22 Urine Bacteria (Auto) 4+ (Negative) H 07/13/22 Blood Type O Positive 07/13/22 Antibody Screen NEGATIVE 07/13/22 Testing Laboratory Results Surgeon's office made aware of abnormal labs. Electrocardiogram Date: 07/13/22 Sinus rhythm with premature supraventricular complexes, rate [address] and T wave abnormality Chest X-Ray Date: 07/13/22 No acute cardiopulmonary findings COVID-19 Risk Screen Screening Information COVID-19 Screen Date: 07/13/22 Exposure 21 Days Family/Household +COVID Last 21 Days: No Exposure 10 Days Any COVID Exposure Last 10 Days: No Symptoms Last 10 Days Experienced COVID Sx Last 10 Days: Yes Covid Sx 10 Day Pathway: If patient has symptoms, they should follow up with their PCP/surgeon to be COVID -19 tested and for further instructions related to their illness. Order COVID Testing COVID-19 Test Result pathway: * If the COVID Test is Negative, other risk factors are acceptable, and the patient is feeling well; proceed with procedure. * If the COVID-19 test is Positive: * Elective procedures will be cancelled/rescheduled per Policy 1096. * Urgent or Emergent procedures will need documentation that the procedure is medically necessary and precautions implemented per Policy 1096. Policies and Procedures Refer to Policy and Procedure 1096 for Initiation & Discontinuation of Transmission-Based Precautions for Confirmed and Suspected SARS-CoV-2 Infection which can be found on the Intranet in the Clinical Resources Manual by clicking on the link below: [email or web address]%20of%20 [email or web address]#search=discontinuation%20of%20Transmission%2DBased + COVID 0-90 Days COVID + in Last 0-90 Days: Yes + COVID Test 0-10 Day: No + COVID Test 11-90 Day: Yes +Covid 0-90 Day Pathway: Validate type of COVID-19 test (must secure test results for patient chart) * The patients test result MUST be a NAAT (i.e., molecular test not an antigen test). * NO other COVID-19 testing needed pre-op or day of surgery inside the 90 day window if prior positive test is acceptable per hospital Policy. Note: Home tests or antigen tests are NOT accepted per hospital policy. Provider to place an order for a VIJAY (i.e., molecular test not an antigen test). Then proceed to the appropriate pathway based on the testing results. Elective Case +COVID-19 in the last 0-10 Days * Cancel/reschedule using Policy 1096. * Reschedule procedure 11 days if asymptomatic. * Reschedule procedure 15 days if mild symptoms. * Reschedule procedure 21 days if moderate to severe symptoms. Elective Case +COVID-19 in the last 11-90 Days * Proceed with procedure according to Policy 1096 * Reschedule procedure 11 days if asymptomatic. * Reschedule procedure 15 days if mild symptoms. * Reschedule procedure 21 days if moderate to severe symptoms. Urgent or Emergent Case * Provider will provide medical necessity statement in the H&P and patient will be scheduled on the (+) COVID/PUI pathway per hospital policy. Policies and Procedures Refer to Policy and Procedure 1096 for Initiation & Discontinuation of Transmission-Based Precautions for Confirmed and Suspected SARS-CoV-2 Infection which can be found on the Intranet in the Clinical Resources Manual by clicking on the link below: [email or web address] and%20Discontinuation%[email or web address]#search=discontinuation%20of%20Tran smission%2DBased
--- NOTE | 2022-07-19 09:01 | History & Physical Report ---
Date of Service July 19, 2022 Assessment & Plan (1) Primary osteoarthritis of right knee: Plan: Treatment options discussed with patient. She has failed conservative measures and would like to proceed with surgery. Risks, benefits and alternatives to surgery including but not limited to infection, DVT, pain, stiffness, need for revision surgery, damage to blood vessels, damage to nerves, PE, , were discussed with the patient and they wish to proceed. Plan on right total knee arthroplasty scheduled for 07/26/[address] Longo at [facility]. Plan on resuming home eliquis post op for DVT prophylaxis. Plan on home health PT. All questions answered. F/u post op. History of Present Illness Chief Complaint: Right knee pain Primary Care Provider: GOKUL PCP 76yo female with PMHx significant for afib, htn, dm2, COPD, who presents with ongoing right knee pain. Pain is interfering with her daily activity. She has failed conservative measures and would like to proceed with surgery. Patient denies headaches, sweats, fevers, chills, double vision, blurred vision, cough, sore throat, dysphagia, chest pain, sob, wheezing, n/v/d/c, numbness, tingling, fatigue, urinary symptoms, mood disorders. ROS positive for right knee pain and stiffness. Allergies Allergy/AdvReac Type Severity Reaction Status Date / Time codeine Allergy Headache Verified 07/12/22 08:37 loracarbef Allergy UNKNOWN Verified 07/12/22 08:34 promethazine Allergy UNKNOWN Verified 07/12/22 08:34 spironolactone Allergy UNKNOWN Verified 07/12/22 08:34 tizanidine Allergy UNKNOWN Verified 07/12/22 08:34 gabapentin AdvReac Mild HEADACHE Verified 07/12/22 08:34 lisinopril AdvReac Cough Verified 07/12/22 08:36 pregabalin AdvReac Hives Verified 07/12/22 08:34 Home Medications Medication Instructions Recorded Confirmed Type benzonatate 100 mg capsule 100 mg PO TID PRN Cough 08/14/19 07/12/22 History bupropion HCl 150 mg 24 hr tablet, 300 mg PO QAM 08/14/19 07/12/22 History extended release cholecalciferol (vitamin D3) 25 25 mcg PO QAM 08/14/19 07/12/22 History mcg (1,000 unit) capsule (Vitamin D3) citalopram 20 mg tablet 20 mg PO QAM 08/14/19 07/12/22 History cyanocobalamin (vitamin B-12) 1,000 mcg PO QAM 08/14/19 07/12/22 History 1,000 mcg tablet,extended release (Vitamin B-12 ER) fluticasone fur. 100 mcg-umeclid 1 inh inhalation QAM 08/14/19 07/12/22 History 62.5 mcg-vilant 25 mcg inhalat.powder (Trelegy Ellipta) lorazepam 0.5 mg tablet 1.5 mg PO TID PRN Anxiety 08/14/19 07/12/22 History losartan 50 mg tablet 50 mg PO QAM 08/14/19 07/12/22 History metoprolol succinate 100 mg 100 mg PO QAM 08/14/19 07/12/22 History tablet,extended release 24 hr nifedipine 30 mg tablet,extended 30 mg PO QAM 08/14/19 07/12/22 History release 24 hr acetaminophen 500 mg tablet 1,000 mg PO Q8H 07/12/22 07/12/22 History albuterol sulfate 90 mcg/actuation 1 puff inhalation TID PRN 07/12/22 07/12/22 History aerosol inhaler (ProAir HFA) Shortness Of Breath apixaban 5 mg tablet (Eliquis) 5 mg PO BID 07/12/22 07/12/22 History semaglutide 0.25 mg or 0.5 mg (2 0.5 mg subcut Q7D 07/12/22 07/12/22 History mg/3 mL) subcutaneous pen injector (Ozempic) zinc 15 mg tablet 15 mg PO QAM 07/12/22 07/12/22 History Past Med/Surg History Medical History Anxiety Asthma last rescue inhaler use this morning Atrial fibrillation managed by PCP; on Eliquis Chronic back pain Chronic obstructive pulmonary disease recently exacerbated with URI Congestive heart failure Single episode when dx with afib Depression Diabetes mellitus, type 2 NIDDM GERD (gastroesophageal reflux disease) daily symptoms, takes TUMs routinely, denies nocturnal symptoms Hearing deficit History of COVID-2019, tested at [facility], hospitalized for 1 night; chills, no appetite, body aches, headache, low grade fever, cough>resolved; 07/05/22: residual cough Hypertension controlled, stable per pt Kidney stones hx On home oxygen therapy 2LPM HS PRN Unintentional weight loss reports 70 lb wt loss over 2 years "no appetite" Surgical History H/O bilateral oophorectomy History of arthroscopy LEFT KNEE History of bladder surgery BLADDER TACK History of breast biopsy LEFT-benign History of cholecystectomy History of colonoscopy History of esophagogastroduodenoscopy (EGD) History of hysterectomy History of left knee replacement 09/09/2019 [facility] History of lithotripsy History of lumbar surgery for reflex sympathetic dystrophy History of tooth extraction Hx of bilateral cataract extraction Family History Sister Diabetes Social History Smoking Status: Former smoker Second Hand Exposure: No; Do You Dip or Chew Tobacco: No; Hx Alcohol Use: Yes Alcohol type: wine Hx Substance Use: No Preferred Language: Bangladeshi Communication Ability: Effective [employer] Required: No Beliefs That Will Affect Care: None marital status: / Current Living Situation: Alone Feels Safe at Home: Yes Assistive Devices: Contacts, Glasses, Oxygen - at Night and Walker Review of Systems All systems reviewed & are unremarkable except as noted in HPI & below Physical Exam Constitutional: well developed and well nourished; no acute distress Eyes: PERRL, conjunctivae normal, anicteric sclerae ENMT: external ear and nose normal, oropharynx normal Neck: trachea midline, no thyromegaly Respiratory: normal respiratory effort, lungs clear to auscultation Cardiovascular: RRR, no murmur, no edema Musculoskeletal: Right knee: ROM 20-70 degrees. Varus alignment. Tenderness medial joint line. Stable to valgus and varus stress. Crepitation with ROM. Skin: no rashes, warm and dry Neurologic: patellar DTR's 2+ bilat, sensation intact Psychiatric: A+Ox3, euthymic affect Results & Data Diagnostic Findings X-rays of her right knee demonstrate severe tricompartmental osteoarthritis, bone on bone, grade 3 medial compartment, with some bone loss, subluxation, subchondral sclerosis, and osteophytes.
[~2022-08-16 06:50] MED LIST changes: -BUPIVACAINE/EPINEPHRINE 0.25% 1:200,000 30 ML VIAL ONE; -CEFAZOLIN 2000MG 2,000 MG/15 ML SYR IV SCH; +EPINEPHrine INJ 1 MG/ML AMP ONE; +ROPIVACAINE 0.5% 5 MG/ML 30 ML VIAL ONE; -ROPIVACAINE 0.5% HCL/PF 150 MG, BUPIVACAINE 0.5% MPF 30 ML, EPINEPHrine 30MG/30ML (OR U... INSTIL SCH; +ROPIVACAINE 0.5% HCL/PF 150 MG, BUPIVACAINE 0.75% MPF 20 ML, EPINEPHrine 30MG/30ML (OR ... INSTIL SCH; +TRANEXAMIC ACID 1,000 MG **IV Intra-op IV SCH; +TRANEXAMIC ACID 1,000 MG **IV Pre-op IV SCH; +ceFAZolin 2000MG 2,000 MG/15 ML SYR IV SCH; -dexAMETHasone 4 MG TAB PO SCH
[2022-08-16] MEDS ORDERED: ePHEDrine sulfate 50 MG/ML AMP ONE (06:53)
[2022-08-16] MEDS ORDERED: SODIUM CHLORIDE 0.9% PF INJ 10 ML VIAL ONE (06:53)
[2022-08-16] MEDS ORDERED: MIDAZOLAM HCL 1 MG/ML 2ML VIAL ONE (07:14)
[2022-08-16] MEDS ORDERED: PROPOFOL IV EMULSION 10 MG/ML 20 ML VIAL IV ONE ×3 (07:14→11:46)
[2022-08-16] MEDS ORDERED: LIDOCAINE 2% 2 ML VIAL/AMP(20MG/ML) INFIL ONE (07:14)
[2022-08-16] MEDS ORDERED: fentaNYL citrate PF 100 MCG/2 ML VIAL ONE (07:15)
[2022-08-16 08:00] LABS: BUN Creatinine Ratio 15.4 (10-20); Calcium 9.1 mg/dl (8.6-10.3); Creatinine Clr Calc Pharmacy 44.3 ml/min; Est GFR (African American) 49.3 ml/min; Est GFR (Non-African American) 42.6 ml/min; Potassium 4.3 mmol/L (3.5-5.1)
--- NOTE | 2022-08-16 09:19 | History & Physical Bridge Note ---
Date of Service August 16, 2022 History & Physical Bridge Note I have examined the patient, reviewed the History & Physical and in the interval since the performance of the History & Physical I have noted the following changes of clinical significance: no changes noted
[2022-08-16] MEDS ORDERED: BUPIVACAINE 0.25% PF 30 ML VIAL EPI PRN (09:40)
[2022-08-16] MEDS ORDERED: BUPIVACAINE 0.25% PF 30 ML VIAL EPI STA (09:40)
[2022-08-16] MEDS ORDERED: LIDOCAINE 2%/EPINEPHRINE 1:200,000 20 ML PF EPI STA (09:40)
[2022-08-16] MEDS ORDERED: SODIUM CHLORIDE 0.9% PF INJ 10 ML VIAL EPI PRN (09:40)
[2022-08-16] MEDS ORDERED: NALOXONE HCL 1 MG in SODIUM CHLORIDE 0.9% 1000ML 1,000 ML IV PRN (09:40)
[2022-08-16] MEDS ORDERED: LIDOCAINE 2% MPF LOCAL 5 ML VIAL EPI PRN (09:40)
[2022-08-16] MEDS ORDERED: ePHEDrine sulfate 50 MG/ML AMP IV PRN (09:40)
[2022-08-16] MEDS ORDERED: fentaNYL citrate PF 100 MCG/2 ML VIAL EPI STA (09:40)
[2022-08-16] MEDS ORDERED: fentaNYL citrate PF 100 MCG/2 ML VIAL EPI PRN (09:40)
[2022-08-16] MEDS ORDERED: diphenhydrAMINE 50 MG/ML VIAL IV PRN (09:40)
[2022-08-16] MEDS ORDERED: NALOXONE HCL 0.4 MG/1 ML VIAL/CARP IV PRN ×2 (09:40→13:44)
[2022-08-16] MEDS ORDERED: ROPIVACAINE 0.5% PF 5 MG/ML 20 ML VIAL EPI PRN (09:40)
[2022-08-16] MEDS ORDERED: SODIUM CHLORIDE 0.9% PF INJ 10 ML VIAL EPI STA (09:40)
--- NOTE | 2022-08-16 11:52 | Post Operative Brief Note ---
Immediate Post Op Note v1 Date of Surgery August 16, 2022 Pre & Post Diagnosis Operation Date: 08/16/22 09:00 Pre-Op Diagnosis: Osteoarthritis Knee Right Post-Op Diagnosis: Osteoarthritis Knee Right I identified the patient and participated in the time-out.: Yes Procedure Operation Date: 08/16/22 09:00 Actual Procedures p Right Total Knee Arthroplasty(Right), Muriel and Acticoat superficial wound VAC application - Ru Longo MD Surgeon Ru Longo MD Party Plan Dealer Charles DIMAS Estimated Blood Loss 5 Findings Consistent with Post-Op Diagnosis Specimens bone cuts Drains Hemovac Drain (10 fr dual luman) Anesthesia Type MAC Spinal Regional Complications none Disposition Disposition: Recovery Room Overlapping Procedure I was present for: the critical portions of procedure. Back up surgeon: was not required during procedure.
--- NOTE | 2022-08-16 13:09 | XRay Report ---
XR knee RT 1 or 2V routine CLINICAL HISTORY: Postoperative evaluation. COMPARISON: None FINDINGS: Alignment of the total right knee arthroplasty is anatomic. There is no periprosthetic fra cture or unexpected radiopaque foreign body. There are drains and skin smiley. IMPRESSION: Expected findings following total right knee arthroplasty. ACT 112: Negative or not required by law. Electronically signed by: Charlie Green M.D. 08/16/2022 1:08 PM
--- NOTE | 2022-08-16 13:12 | Anesthesiology Progress Note ---
Date of Service August 16, 2022 Anesthesia Post Procedure Vital Signs Vital Signs: Temp Pulse Resp BP Pulse Ox O2 Del Method O2 Flow Rate 08/16/22 13:00 36.5 C 76 16 138/76 97 Nasal Cannula 2 08/16/22 12:50 77 16 129/73 98 Nasal Cannula 2 08/16/22 12:40 66 16 135/63 100 Oxymask 4 08/16/22 12:30 69 14 132/62 100 Oxymask 4 08/16/22 12:19 36 C L 69 18 124/63 98 Oxymask 6 08/16/22 08:18 Nasal Cannula 2 08/16/22 07:33 37 C 85 20 167/90 H 92 Room Air Pain Intensity Right Knee: Pain Intensity: 10 Transfer of Care Handoff Completed per policy Notes Mental Status: alert / awake / arousable Patient Amnestic to Procedure: Yes Nausea / Vomiting: adequately controlled Pain: adequately controlled Airway Patency, RR, SpO2: stable & adequate BP & HR: stable & adequate Hydration State: stable & adequate Neuraxial Anesthesia: was administered and sensory block is resolving Anesthetic Complications: no major complications apparent
[2022-08-16] MEDS ORDERED: ONDANSETRON INJ 2 MG/ML 2 ML VIAL IV PRN (13:44)
[2022-08-16] MEDS ORDERED: LORazepam 0.5 MG TAB PO PRN (13:44)
[2022-08-16] MEDS ORDERED: METOCLOPRAMIDE HCL INJ 5 MG/ML 2 ML VIAL IV PRN (13:44)
[2022-08-16] MEDS ORDERED: bisacodyL 10 MG SUPP PR PRN (13:44)
[2022-08-16] MEDS ORDERED: PHARMACY GLYCEMIC MGMT CONSULT PRN (13:44)
[2022-08-16] MEDS ORDERED: MAGNESIUM HYDROXIDE SUSP 30 ML UDC PO PRN (13:44)
[2022-08-16] MEDS ORDERED: ALBUTEROL HFA 8 GM INHALER INH PRN (13:44)
[2022-08-16] MEDS ORDERED: BENZONATATE 100 MG CAPSULE PO PRN (13:44)
[2022-08-16] MEDS ORDERED: MELATONIN 3 MG TAB PO PRN (14:00)
[2022-08-16] MEDS: ACETAMINOPHEN 500 MG TAB PO SCH ×2 (14:21→23:27)
[2022-08-16] MEDS: SODIUM CHLORIDE 0.9% 1000ML 1,000 ML IV SCH ×2 (14:21→23:30)
[2022-08-16] MEDS ORDERED: FUROSEMIDE 40 MG TAB PO SCH (14:45)
--- NOTE | 2022-08-16 14:57 | Hospitalist Consultation ---
Date of Consultation August 16, 2022 Assessment & Plan (1) Primary osteoarthritis of right knee: POD#[address] Longo Activity and wound care orders as per ortho Pain control with bowel regimen PT/OT Monitor H/H for acute blood loss anemia and transfuse blood products PRN EBL 5ml (2) Paroxysmal atrial fibrillation: Anticoagulated on Eliquis, resume by orthopedics to start this evening Rate controlled on metoprolol (3) Chronic diastolic CHF (congestive heart failure): Appears euvolemic Continue home dose furosemide (4) Diabetes mellitus, type 2: Hgb A1c 7.5 07/2022 Hold home Ozempic Glycemic pharmacy consulted by orthopedics (5) Hypertension: BP controlled, continue metoprolol and nifedipine (6) Chronic obstructive pulmonary disease: (7) Asthma: Appears stable, no signs of acute exacerbation Continue home inhalers (8) CKD (chronic kidney disease), stage III: Baseline creatinine low 1's Creatinine 1.2 on a.m. labs Monitor renal functions DVT PROPHYLAXIS Eliquis Patient seen in collaboration with Dr. Boyd. Supervising Physician Co-Signing Physician Notes Pt seen and examined by myself, Kari Boyd MD on the day of service. Care was coordinated with JJ Dumont. Please refer to her note for additional information. 76yoF with Hx of atrial fibrillation, DMII, CKD who is s/p total knee arthroplasty with orthopedics. Medicine consulted for postop management of her chronic medical conditions. Continue with beta sumeet and anticoagulation re-started post-op by orthopedics for atrial fibrillation. Glycemic consult previously placed by orthopedics for DM management. CKD stable Otherwise as above. History of Present Illness Reason for Consultation: Postop medical management Requesting Physician: Dr. Longo Attending Physician: Ru Longo MD History of Present Illness 76-year-old female PMH DM type II, COPD, asthma, paroxysmal atrial fibrillation anticoagulant on Eliquis, HTN, chronic diastolic CHF, CKD stage III, and other problems listed below who is s/p right TKA today by Dr. Longo. History obtained from the patient and review of outpatient PCP and cardiology records. Postoperatively, the patient is doing well. She reports her pain is well controlled. Denies numbness and tingling to lower extremities. No chest pain or shortness of breath. Denies lightheadedness and dizziness. No abdominal pain or nausea. Patient has not voided since surgery. Allergies Allergy/AdvReac Type Severity Reaction Status Date / Time codeine Allergy Headache Verified 08/16/22 07:41 loracarbef Allergy UNKNOWN Verified 08/16/22 07:41 promethazine Allergy UNKNOWN Verified 08/16/22 07:41 spironolactone Allergy UNKNOWN Verified 08/16/22 07:41 tizanidine Allergy UNKNOWN Verified 08/16/22 07:41 gabapentin AdvReac Mild HEADACHE Verified 08/16/22 07:41 lisinopril AdvReac Cough Verified 08/16/22 07:41 pregabalin AdvReac Hives Verified 08/16/22 07:41 Home Medications Medication Instructions Recorded Confirmed Type benzonatate 100 mg capsule 100 mg PO TID PRN Cough 08/14/19 08/16/22 History bupropion HCl 150 mg 24 hr tablet, 300 mg PO QAM 08/14/19 08/16/22 History extended release cholecalciferol (vitamin D3) 25 25 mcg PO QAM 08/14/19 08/16/22 History mcg (1,000 unit) capsule (Vitamin D3) cyanocobalamin (vitamin B-12) 1,000 mcg PO QAM 08/14/19 08/16/22 History 1,000 mcg tablet,extended release (Vitamin B-12 ER) fluticasone fur. 100 mcg-umeclid 1 inh inhalation QAM 08/14/19 08/16/22 History 62.5 mcg-vilant 25 mcg inhalat.powder (Trelegy Ellipta) lorazepam 0.5 mg tablet 0.5 - 1 mg PO TID PRN Anxiety 08/14/19 08/16/22 History metoprolol succinate 100 mg 100 mg PO QAM 08/14/19 08/16/22 History tablet,extended release 24 hr nifedipine 30 mg tablet,extended 30 mg PO QAM 08/14/19 08/16/22 History release 24 hr acetaminophen 500 mg tablet 1,000 mg PO Q8H 07/12/22 08/16/22 History albuterol sulfate 90 mcg/actuation 1 puff inhalation TID PRN 07/12/22 08/16/22 History aerosol inhaler (ProAir HFA) Shortness Of Breath apixaban 5 mg tablet (Eliquis) 5 mg PO BID 07/12/22 08/16/22 History semaglutide 0.25 mg or 0.5 mg (2 0.5 mg subcut Q7D 07/12/22 08/16/22 History mg/3 mL) subcutaneous pen injector (Ozempic) zinc 15 mg tablet 15 mg PO QAM 07/12/22 08/16/22 History furosemide 40 mg tablet (Lasix) 40 mg PO Q OTHER DAY 08/16/22 08/16/22 History melatonin 10 mg tablet 10 mg PO HS PRN Sleep 08/16/22 08/16/22 History Patient History Medical History Anxiety Asthma last rescue inhaler use this morning Chronic back pain Chronic diastolic CHF (congestive heart failure) Chronic obstructive pulmonary disease recently exacerbated with URI CKD (chronic kidney disease), stage III Congestive heart failure Single episode when dx with afib Depression Diabetes mellitus, type 2 NIDDM GERD (gastroesophageal reflux disease) daily symptoms, takes TUMs routinely, denies nocturnal symptoms Hearing deficit History of COVID-2019, tested at [facility], hospitalized for 1 night; chills, no appetite, body aches, headache, low grade fever, cough>resolved; 07/05/22: residual cough Hypertension controlled, stable per pt Kidney stones hx On home oxygen therapy 2LPM HS PRN Paroxysmal atrial fibrillation Unintentional weight loss reports 70 lb wt loss over 2 years "no appetite" Surgical History H/O bilateral oophorectomy History of arthroscopy LEFT KNEE History of bladder surgery BLADDER TACK History of breast biopsy LEFT-benign History of cholecystectomy History of colonoscopy History of esophagogastroduodenoscopy (EGD) History of hysterectomy History of left knee replacement 09/09/2019 [facility] History of lithotripsy History of lumbar surgery for reflex sympathetic dystrophy History of tooth extraction Hx of bilateral cataract extraction Family History Sister Diabetes Social History Smoking Status: Former smoker Smoking End Date: 23 years ago; Second Hand Exposure: No; Do You Dip or Chew Tobacco: No; Tobacco Cessation Education Requested by Patient: No Hx Alcohol Use: Yes Alcohol type: wine Hx Substance Use: No Preferred Language: Polish Communication Ability: Effective Refrigeration Supervisor Required: No Beliefs That Will Affect Care: None marital status: / Current Living Situation: Alone Other Information That Helps Us Care for You: No Feels Safe at Home: Yes Safety Concerns: Feels Safe At This Time Assistive Devices: Contacts, Glasses, Oxygen - at Night and Walker Assistive Devices Comment: oygen PRN at night; reading glasses Review of Systems Review of Systems: ROS per HPI, all other systems reviewed and negative Physical Exam Constitutional: WD/WN, vitals as above no acute distress Eyes: PERRL, conjunctivae normal, anicteric sclerae ENMT: external ear and nose normal, oropharynx normal Respiratory: normal respiratory effort, lungs clear to auscultation Cardiovascular: Rate/Rhythm: regular rate and regular rhythm Vessels: normal peripheral pulses Extremities: no edema Gastrointestinal (Abdomen): normal bowel sounds, soft, nontender, no hepa tosplenomegaly Musculoskeletal: S/p right knee surgery, dressing CDI, drain in place draining bloody drainage, CSM checks intact RLE Skin: no rashes, warm and dry Neurologic: PERRL, EOMI, accommodation nl, no face palsy, no dysarthria Psychiatric: A+Ox3, euthymic affect Results & Data Results & Data Vital Signs (Past 12 Hours) Vital Signs Temp Pulse Pulse Resp BP Pulse Ox O2 Del Method 08/16/22 14:34 36.8 C 74 18 124/68 94 Room Air 08/16/22 14:13 Nasal Cannula 08/16/22 13:52 36.5 C 75 18 127/79 98 Nasal Cannula 08/16/22 13:25 36.4 C L 77 18 118/76 96 Nasal Cannula 08/16/22 13:00 36.5 C 76 16 138/76 97 Nasal Cannula 08/16/22 12:50 77 16 129/73 98 Nasal Cannula 08/16/22 12:40 66 16 135/63 100 Oxymask 08/16/22 12:30 69 14 132/62 100 Oxymask 08/16/22 12:19 36 C L 69 18 124/63 98 Oxymask 08/16/22 08:18 Nasal Cannula 08/16/22 07:33 37 C 85 20 167/90 H 92 Room Air O2 Flow Rate 08/16/22 14:34 08/16/22 14:13 2 08/16/22 13:52 2 08/16/22 13:25 2 08/16/22 13:00 2 08/16/22 12:50 2 08/16/22 12:40 4 08/16/22 12:30 4 08/16/22 12:19 6 08/16/22 08:18 2 08/16/22 07:33 Laboratory Results BMP 08/16/22 07:31 Sodium 136 Potassium 4.3 Chloride 102 Carbon Dioxide 28 BUN 19 Creatinine 1.23 H Glucose 173 H Calcium 9.1 Diagnostic Findings Knee X-Ray 08/16/22 12:24 XR knee RT 1 or 2V routine CLINICAL HISTORY: Postoperative evaluation. COMPARISON: None FINDINGS: Alignment of the total right knee arthroplasty is anatomic. There is no periprosthetic fracture or unexpected radiopaque foreign body. There are drains and skin smiley. IMPRESSION: Expected findings following total right knee arthroplasty. ACT 112: Negative or not required by law. Electronically signed by: Charlie Green M.D. 08/16/2022 1:08 PM
--- NOTE | 2022-08-16 15:20 | Operative Report ---
Post Operative Report Pre & Post Diagnosis Operation Date: 08/16/22 09:00 Pre-Op Diagnosis: Osteoarthritis Knee Right Post-Op Diagnosis: Osteoarthritis Knee Right I identified the patient and participated in the time-out.: Yes Procedure Operation Date: 08/16/22 09:00 Actual Procedures p Right Total Knee Arthroplasty(Right), wiley and Acticoat superficial wound VAC application - Ru Longo MD Surgeon Ru Longo MD Aquatic Scientist Charles DIMAS Estimated Blood Loss 5 Findings Consistent with Post-Op Diagnosis Specimens bone cuts Drains 2 Hemovac Anesthesia Type MAC Spinal Regional Complications none Disposition Disposition: Recovery Room Indications 76-year-old female with chronic right knee pain with severe tricompartmental osteoarthritis. Patient does have a varus knee and obesity. Patient has successful left knee replacement in the past. Description of Procedure Patient taken to the operating room the size under[ Spinal MAC regional block] anesthesia. Patient was placed supine on the operating table. A pneumatic tourniquet was placed about the[ obese right] upper thigh. The right lower extremity was prepped and draped in sterile fashion. Knee exam demonstrated 30 degree flexion contracture with flexion to 80 degrees and very stiff knee. The leg was elevated exsanguinated with an Esmarch bandage and pneumatic tourniquet was raised to 350 millimeters of mercury. Skin incised sharply in longitudinal fashion. Subcutaneous flaps elevated. Incision was made through the medial retinaculum extending up in the mid third of the quadriceps tendon and down to the medial tibial tubercle. Intra-articular findings demonstrated severe tricompartmental osteoarthritis with [id number] medial compartment and some bone loss very large tricompartmental osteophytes with very large osteophytes and posterior medial compartment limiting range of motion in flexion. The [employer] triMicromidaslon total knee arthroplasty system was used. To expose the knee the infrapatellar fat pad was resected. The meniscal remnants and cruciate ligaments were resected. The anterior fat pad over the femur in the area of the anterior flange of the femoral component was resected. Lateral synovial bands release. The femur was exposed. I was unable to get femoral exposure so we had to go ahead and do the patella first. A subperiosteal peel lateral release was performed around the patella the patella was everted and freehand cut technique was performed with the oscillating saw. The width was reproduced using a 31 symmetrical patella component. Drill holes were made. Excess lateral facet was beveled off prevent any impingement. Femur was more readily exposed. An intramedullary drill hole was made into the canal. A guide cameron was placed. Distal femoral cutting guide was adjusted to resect a 5 degree valgus cut with10 millimeters of distal femoral resection. the femoral sizing guide was pinned in position. The drill holes were placed in 3 of external rotation to match epicondylar axis. Femur sized for a Four component. The 4-in-1 cutting block was placed and then the anterior posterior and chamfer cuts are made. there were large circumferential osteophytes that were resected and posterior osteophytes resected in order to flex the knee to expose the tibia. The tibia was then subluxed. The external tibial cutting guide was just to make a perpendicular cut to the long axis of the tibia below the most deficient bone loss side. A lamina real estate closing coordinator was used and the flexion extension gaps were balanced. All Remaining posterior osteophytes removed. All meniscal remnants were resected. The tibia exposed and the trial tibial component size for was externally rotated in line with the tibial tubercle and pinned in position. The punch for stem was used. The notch cutting device was centered appropriately and the femoral notch cut was made. The femoral trial was inserted. Trial tibial inserts were placed and size 16 posterior stabilized gave balanced ligaments through flexion and extension. Patella tracking was assessed. The patella tracked centrally The trial components were then removed and the orthomix anesthetic cocktail was injected per protocol. The knee was then copiously irrigated with pulsatile lavage saline solution. Final components were then cemented with Simplex cement. Final components were Coamo triathlon posterior stabilized right size 4 femoral component, femoral distal fixation pegs x2, 4 primary tibial baseplate, 31 symmetrical X.3 polyethy ammy patella. After the cement cured the Betadine soak was used for 3 minutes. Further pulsatile lavage irrigation was then performed and 2 Hemovac drains were brought out laterally. The quadriceps tendon and medial retinaculum were closed with figure of 8 #1 Vicryl sutures. The knee was taken through full range of motion and the repair was secure. Knee range of motion was 0 to 120 degrees. T he subcutaneous tissues were closed with 2-0 Vicryl sutures. Skin was closed with[ Brown]. Sterile dressings were applied. The patient tolerated the procedure well Cholo DIMAS was my physician procurement assistant who participated as prosthetics assistant and was involved in all aspects of the procedure including patient positioning prepping and draping,leg positioning ,soft tissue retraction and instrument management and participated in the closing application of the superficial wound VACand will participate in postoperative care of the patient. The patient tolerated the procedure well. I attest to the content of the Intraoperative Record and any orders documented therein. Any exceptions are noted below.
[2022-08-16] MEDS: INSULIN ASPART PER UNIT CHARGE SC SCH ×3 (17:41→23:43)
[2022-08-16] MEDS: ceFAZolin 2000MG 2,000 MG/15 ML SYR IV SCH (17:42)
[2022-08-16] MEDS: oxyCODONE HCL IR 5 MG TAB (IMMEDIATE RELEASE) PO PRN (19:47)
[2022-08-16] MEDS: DOCUSATE SODIUM 100 MG CAP PO SCH (20:50)
[2022-08-16] MEDS: SENNA 8.6 MG TAB PO SCH (20:50)
[2022-08-16] MEDS ORDERED: LANTUS PER UNIT CHARGE SC SCH (21:00)
[2022-08-16] MEDS: HYDROmorphone INJ 0.5 MG/0.5 ML SYR IV PRN (23:27)
[2022-08-17] MEDS: oxyCODONE HCL IR 5 MG TAB (IMMEDIATE RELEASE) PO PRN ×4 (03:21→20:04)
[2022-08-17] MEDS: ceFAZolin 2000MG 2,000 MG/15 ML SYR IV SCH (03:26)
[2022-08-17] MEDS: INSULIN ASPART PER UNIT CHARGE SC SCH ×5 (04:02→20:42)
[2022-08-17] MEDS: ACETAMINOPHEN 500 MG TAB PO SCH ×3 (06:13→21:24)
[2022-08-17] MEDS: LANTUS PER UNIT CHARGE SC SCH ×2 (07:21→08:23)
[2022-08-17 07:23] LABS: Hematocrit (blood only) 29.3 % (37.0-47.0); Hemoglobin 9.8 g/dl (12.0-16.0); Mean Corpuscular Hemoglobin 30.2 pg (25.0-34.0); Mean Corpuscular Hgb Conc 33.4 g/dL (32.0-36.0); Mean Corpuscular Volume 90.2 fL (80.0-100.0); Mean Platelet Volume 10.9 fL (9.4-12.4); Platelet Count 155 K/uL (130-400); RDW Coefficient of Variation 14.4 % (11.5-14.5); RDW Standard Deviation 47.7 fL (36.4-46.3); Red Blood Count 3.25 M/uL (4.20-5.40)
[2022-08-17 07:40] LABS: BUN Creatinine Ratio 13.1 (10-20); Calcium 8.1 mg/dl (8.6-10.3); Creatinine Clr Calc Pharmacy 37.6 ml/min; Est GFR (African American) 40.4 ml/min; Est GFR (Non-African American) 34.9 ml/min; Potassium 4.4 mmol/L (3.5-5.1)
[2022-08-17] MEDS: NIFEdipine EXTENDED REL 30 MG TABCR PO SCH (08:01)
[2022-08-17] MEDS: APIXABAN 5 MG TABLET PO SCH ×2 (08:01→20:05)
[2022-08-17] MEDS: buPROPion XL 300 MG TABCR PO SCH (08:02)
[2022-08-17] MEDS: CHOLECALCIFEROL 1,000 UNITS 25 MCG TAB PO SCH (08:02)
[2022-08-17] MEDS: METOPROLOL SUCC 50MG EXT REL TAB PO SCH (08:02)
[2022-08-17] MEDS: FLUTICASONE FUROATE 100MCG 14 PUFFS/INHALER INH SCH (08:03)
[2022-08-17] MEDS: UMECLIDINIUM/VILANTEROL 62.5/25MCG 7 PUFFS/INHALER INH SCH (08:03)
[2022-08-17] MEDS: DOCUSATE SODIUM 100 MG CAP PO SCH ×2 (08:07→20:05)
[2022-08-17] MEDS ORDERED: NON-FORMULARY MEDICATION (Zinc 15 mg Tablet) PO SCH (09:00)
[2022-08-17] MEDS ORDERED: CITALOPRAM 20 MG TAB PO SCH (09:00)
[2022-08-17] MEDS: HYDROmorphone INJ 0.5 MG/0.5 ML SYR IV PRN ×2 (09:30→21:24)
--- NOTE | 2022-08-17 09:40 | Orthopedic Progress Note ---
Date of Service August 17, 2022 Assessment & Plan (1) Primary osteoarthritis of right knee: Plan: Postop day 1 status post right total knee arthroplasty. PT/OT protocols. Weightbearing as tolerated. DVT prophylaxis-apixaban 5 mg p.o. twice daily, SCDs, ROGELIO krishnamurthy. Pain management as written. Hemoglobin dropped from 12 down to 9.8. Patient is asymptomatic. DC planning-home health services upon discharge. Admission and Anticipated Discharge Date Admission Date: August 16, 2022 Subjective Postop day 1 Patient sitting in her chair at the bedside. Having some pain in the operative knee this morning but is tolerating well. Denies shortness of breath, chest pain, lightheadedness. No other complaints this morning. Physical Exam Physical Exam: Dressings are clean, dry, and intact. Calves are soft nontender. Neurovascular is intact. Toes are mobile. She has good dorsiflexion and plantarflexion of the right foot. Results & Data Vital Signs (Past 12 Hours) Vital Signs Temp Pulse Resp BP Pulse Ox O2 Del Method 08/17/22 06:59 36.6 C 80 17 133/94 95 Room Air 08/17/22 03:09 36.6 C 82 18 142/76 H 96 Room Air 08/16/22 23:34 37.0 C 88 14 174/109 H 94 Room Air Laboratory Results Laboratory Results WBC 9.20 K/ul (4.8-10.8) 08/17/22 07:02 RBC 3.25 M/uL (4.20-5.40) L 08/17/22 07:02 Hgb 9.8 g/dl (12.0-16.0) L 08/17/22 07:02 Hct 29.3 % (37.0-47.0) L 08/17/22 07:02 MCV 90.2 fL (80.0-100.0) 08/17/22 07:02 MCH 30.2 pg (25.0-34.0) 08/17/22 07:02 MCHC 33.4 g/dL (32.0-36.0) 08/17/22 07:02 RDW Std Deviation 47.7 fL (36.4-46.3) H 08/17/22 07:02 RDW Coeff of Dragan 14.4 % (11.5-14.5) 08/17/22 07:02 Plt Count 155 K/uL (130-400) 08/17/22 07:02 MPV 10.9 fL (9.4-12.4) 08/17/22 07:02 Sodium 138 mmol/L (136-145) 08/17/22 07:02 Potassium 4.4 mmol/L (3.5-5.1) 08/17/22 07:02 Chloride 105 mmol/L (98-107) 08/17/22 07:02 Carbon Dioxide 27 mmol/L (21-32) 08/17/22 07:02 Anion Gap 6 (3-11) 08/17/22 07:02 BUN 19 mg/dl (6-23) 08/17/22 07:02 Creatinine 1.45 mg/dl (0.6-1.2) H 08/17/22 07:02 Est Cr Clr Drug Dosing 37.6 ml/min 08/17/22 07:02 Est GFR ( Amer) 40.4 ml/min 08/17/22 07:02 Est GFR (Non-Af Amer) 34.9 ml/min 08/17/22 07:02 BUN/Creatinine Ratio 13.1 (10-20) 08/17/22 07:02 Glucose 159 mg/dl (70-99(Fasting)) H 08/17/22 07:02 POC Glucose 155 mg/dl (70-99) H 08/17/22 06:58 Calcium 8.1 mg/dl (8.6-10.3) L 08/17/22 07:02 SARS-CoV-2, RNA, NAAT NEGATIVE (NEGATIVE) 08/16/22 07:11 Impressions Knee X-Ray 08/16/22 12:24 XR knee RT 1 or 2V routine CLINICAL HISTORY: Postoperative evaluation. COMPARISON: None FINDINGS: Alignment of the total right knee arthroplasty is anatomic. There is no periprosthetic fracture or unexpected radiopaque foreign body. There are drains and skin smiley. IMPRESSION: Expected findings following total right knee arthroplasty. ACT 112: Negative or not required by law. Electronically signed by: hCarlie Green M.D. 08/16/2022 1:08 PM
--- NOTE | 2022-08-17 10:58 | Pharmacy Report ---
Pharmacy Glycemic Short Note 2 - Date of Service August 17, 2022 - Glycemic Short BSG Results (Last 24 hours): 08/16/22 08/16/22 08/16/22 12:26 16:54 20:44 Glucose POC Glucose 149 H 166 H 126 H 08/16/22 08/17/22 08/17/22 23:38 03:25 06:58 Glucose POC Glucose 149 H 133 H 155 H 08/17/22 07:02 Glucose 159 H POC Glucose OUTPATIENT ANTIDIABETIC REGIMEN: * Ozempic 0.5 mg every 7 days - last dose on 08/15/22 ASSESSMENT: * 76 y/o F admitted for Right total knee arthroplasty yesterday. Today is POD #1. Patient has a history of Type 2 diabetes managed at home on weekly SQ Ozem pic. * Patient has acute blood loss anemia with drop in hgb currently. * Pharmacy consulted for glycemic management last night. * Blood sugars were either at or near goal yesterday and patient did not receive any basal insulin. Novolog was started with dinner based on stress between 1 and 2. * Fasting BSG today morning was slightly higher than goal - 159 mg/dl. * Lantus 5 units SQ QAM was ordered which is less than stress of 1. * Since patient's last dose of Ozempic was only 2 days ago, this is still working for her diabetes. PLAN FOR INPATIENT GLYCEMIC CONTROL: * Hold outpatient diabetes medications * Basal insulin * Lantus 5 units SQ QAM * Bolus insulin * NovoLog per scale ACHS or Q6hrs while NPO * Goal Range: Low 110 mg/dL - High 140 mg/dL * Correction Factor: 25 mg/dL/unit * Nutritional / Prandial insulin per carb ratio of 1 unit per 10 grams CHO consumed
[2022-08-17] MEDS: MULTIVITAMIN TAB PO SCH (11:10)
[2022-08-17] MEDS: CYANOCOBALAMIN (B-12) 500 MCG TABLET PO SCH (11:10)
--- NOTE | 2022-08-17 16:37 | Hospitalist Progress Note ---
Date of Service August 17, 2022 Assessment & Plan (1) Primary osteoarthritis of right knee: Plan: POD#[address] Longo Pain, activity and wound care orders as per ortho (2) Paroxysmal atrial fibrillation: Plan: Anticoagulated on Eliquis, Rate controlled on metoprolol (3) Chronic diastolic CHF (congestive heart failure): Plan: Appears euvolemic, Continue home dose furosemide (4) Diabetes mellitus, type 2: Plan: Hgb A1c 7.5 07/2022 Hold home Ozempic Insulin management per Glycemic pharmacy (5) Hypertension: Plan: BP controlled, continue metoprolol and nifedipine (6) Chronic obstructive pulmonary disease: (7) Asthma: Plan: Appears stable, no signs of acute exacerbation Continue home inhalers (8) CKD (chronic kidney disease), stage III: Plan: Cr relatively at baseline. monitor DVT ppx- Eliquis Dispo per ortho service Admission and Anticipated Discharge Date Admission Date: August 16, 2022 Subjective Seen and examined at bedside. States she still has significant pain and does not feel comfortable to go home today. No other issues. No N/V/CP/SOB. No fever or chills. Review of Systems Review of Systems: All systems reviewed & are unremarkable except as noted in Subjective Physical Exam Physical Exam: General: Sitting comfortably in chair, not in distress, on room air HEENT: MADONNA, MMM Chest: Clear breath sounds bilaterally, no wheezes or crackles CVS: Regular rate and rhythm, normal heart sounds, no murmur Abdomen: Soft, non tender, not distended, normal bowel sounds Neuro: Awake, alert, oriented, conversing well, non focal Extremities: Rt knee covered with dressing and ice pack- on hemovac suction Results & Data Results & Data Vital Signs (Past 12 Hours) Vital Signs Temp Pulse Resp BP Pulse Ox O2 Del Method 08/17/22 16:01 36.9 C 85 18 137/86 93 Room Air 08/17/22 06:59 36.6 C 80 17 133/94 95 Room Air Laboratory Results Short CBC 08/17/22 Range/Units 07:02 WBC 9.20 (4.8-10.8) K/ul Hgb 9.8 L (12.0-16.0) g/dl Hct 29.3 L (37.0-47.0) % Plt Count 155 (130-400) K/uL BMP 08/17/22 07:02 Sodium 138 Potassium 4.4 Chloride 105 Carbon Dioxide 27 BUN 19 Creatinine 1.45 H Glucose 159 H Calcium 8.1 L Medications Administered Current Inpatient Medications Acetaminophen (Acetaminophen 500 Mg Tab) 1,000 mg PO Q8H [facility] Stop: 09/15/22 13:59 Last Admin: 08/17/22 14:01 Dose: 1,000 mg Albuterol (Albuterol Hfa 8 Gm Inhaler) 1 puffs INH TIDR PRN PRN Reason: Shortness Of Breath Stop: 09/15/22 13:43 Apixaban (Apixaban 5 Mg Tablet) 5 mg PO BID [facility] Stop: 09/16/22 08:59 Last Admin: 08/17/22 08:01 Dose: 5 mg Benzonatate (Benzonatate 100 Mg Capsule) 100 mg PO TID PRN PRN Reason: Cough Stop: 09/15/22 13:43 Bisacodyl (Bisacodyl 10 Mg Supp) 10 mg [place] DAILY PRN PRN Reason: Constipation Stop: 09/15/22 13:43 Bupropion HCl (Bupropion Xl 300 Mg Tabcr) 300 mg PO QAM [facility] Stop: 09/16/22 08:59 Last Admin: 08/17/22 08:02 Dose: 300 mg Cyanocobalamin (Cyanocobalamin (B-12) 500 Mcg Tablet) 1,000 mcg PO QAM [facility] Stop: 09/16/22 08:59 Last Admin: 08/17/22 11:10 Dose: 1,000 mcg Docusate Sodium (Docusate Sodium 100 Mg Cap) 100 mg PO BID [facility] Stop: 09/15/22 20:59 Last Admin: 08/17/22 08:07 Dose: 100 mg Fluticasone Furoate (Fluticasone Furoate 100mcg 14 Puffs/Inhaler) 1 puffs INH QAM [facility] Stop: 09/16/22 08:59 Last Admin: 08/17/22 08:03 Dose: 1 puffs Furosemide (Furosemide 40 Mg Tab) 40 mg PO Q48H [facility] Stop: 09/15/22 14:44 Last Admin: 08/16/22 15:31 Dose: 40 mg Hydromorphone HCl (Hydromorphone Inj 0.5 Mg/0.5 Ml Syr) 0.5 mg IV Q4H PRN PRN Reason: Pain or Pre PT Stop: 08/30/22 13:43 Last Admin: 08/17/22 09:30 Dose: 0.5 mg Insulin Aspart (Insulin Aspart Per Unit Charge) 0 units SC [facility] Stop: 09/15/22 16:29 Last Admin: 08/17/22 12:42 Dose: 4 units Insulin Glargine (Lantus Per Unit Charge) 5 units SC [facility] Stop: 09/16/22 08:59 Last Admin: 08/17/22 08:23 Dose: 5 units Lorazepam (Lorazepam 0.5 Mg Tab) 0.5 mg PO TID PRN PRN Reason: Anxiety Stop: 09/15/22 13:43 Magnesium Hydroxide (Magnesium Hydroxide Susp 30 Ml Udc) 30 ml PO Q6H PRN PRN Reason: Constipation Stop: 09/15/22 13:43 Melatonin (Melatonin 3 Mg Tab) 9 mg PO HSZ PRN PRN Reason: Sleep Stop: 09/15/22 13:59 Metoclopramide HCl (Metoclopramide Hcl Inj 5 Mg/Ml 2 Ml Vial) 10 mg IV Q6H PRN PRN Reason: Nausea And Vomiting Stop: 09/15/22 13:43 Metoprolol Succinate (Metoprolol Succ 50mg Ext Rel Tab) 100 mg PO [facility] Stop: 09/16/22 08:59 Last Admin: 08/17/22 08:02 Dose: 100 mg Miscellaneous Information (Pharmacy Glycemic Mgmt Consult) 1 each N/A UD PRN PRN Reason: Consult Stop: 09/15/22 13:43 Multivitamins (Multivitamin Tab) 1 tab PO [facility] Stop: 09/16/22 08:59 Last Admin: 08/17/22 11:10 Dose: 1 tab Naloxone HCl (Naloxone Hcl 0.4 Mg/1 Ml Vial/Carp) 0.1 mg IV Q5M PRN PRN Reason: Oversedation/Resp Depression Stop: 09/15/22 13:43 Nifedipine (Nifedipine Extended Rel 30 Mg Tabcr) 30 mg PO [facility] Stop: 09/16/22 08:59 Last Admin: 08/17/22 08:01 Dose: 30 mg Ondansetron HCl (Ondansetron Inj 2 Mg/Ml 2 Ml Vial) 4 mg IV Q6H PRN PRN Reason: Nausea And Vomiting Stop: 09/15/22 13:43 Oxycodone HCl (Oxycodone Hcl Ir 5 Mg Tab (Immediate Release)) 5 - 10 mg PO Q4H PRN PRN Reason: Pain or Pre PT Stop: 08/30/22 13:43 Last Admin: 08/17/22 15:59 Dose: 10 mg Sennosides (Senna 8.6 Mg Tab) 17.2 mg PO [facility] Stop: 09/15/22 20:59 Last Admin: 08/16/22 20:50 Dose: Not Given Umeclidinium/Vilanterol (Umeclidinium/Vilanterol 62.5/25mcg 7 Puffs/Inhaler) 1 puffs INH [facility] Stop: 09/16/22 08:59 Last Admin: 08/17/22 08:03 Dose: 1 puffs Vitamin D (Cholecalciferol 1,000 Units 25 Mcg Tab) 1,000 [facility] Stop: 09/16/22 08:59 Last Admin: 08/17/22 08:02 Dose: 1,000 units
[2022-08-17] MEDS: SENNA 8.6 MG TAB PO SCH (20:05)
[2022-08-18] MEDS: oxyCODONE HCL IR 5 MG TAB (IMMEDIATE RELEASE) PO PRN ×4 (02:00→17:49)
[2022-08-18] MEDS: HYDROmorphone INJ 0.5 MG/0.5 ML SYR IV PRN ×2 (03:20→09:50)
[2022-08-18] MEDS: LORazepam 0.5 MG TAB PO PRN ×2 (03:40→08:10)
[2022-08-18 05:58] LABS: Hematocrit (blood only) 28.7 % (37.0-47.0); Hemoglobin 9.8 g/dl (12.0-16.0); Mean Corpuscular Hgb Conc 34.1 g/dL (32.0-36.0); Mean Corpuscular Volume 90.8 fL (80.0-100.0); Platelet Count 149 K/uL (130-400); RDW Coefficient of Variation 14.4 % (11.5-14.5); RDW Standard Deviation 47.9 fL (36.4-46.3); Red Blood Count 3.16 M/uL (4.20-5.40)
[2022-08-18 06:13] LABS: BUN Creatinine Ratio 13.5 (10-20); Calcium 8.8 mg/dl (8.6-10.3); Creatinine Clr Calc Pharmacy 43.2 ml/min; Est GFR (African American) 47.9 ml/min; Est GFR (Non-African American) 41.4 ml/min; Potassium 4.5 mmol/L (3.5-5.1)
[2022-08-18] MEDS: ACETAMINOPHEN 500 MG TAB PO SCH ×3 (06:15→21:07)
--- NOTE | 2022-08-18 06:41 | Orthopedic Progress Note ---
Date of Service August 18, 2022 Assessment & Plan (1) Primary osteoarthritis of right knee: Plan: Postop day 2 status post right total knee arthroplasty. PT/OT protocols. Weightbearing as tolerated. DVT prophylaxis-apixaban 5 mg p.o. twice daily, SCDs, ROGELIO krishnamurthy. Pain management as written. DC planning-home health services upon discharge. Admission and Anticipated Discharge Date Admission Date: August 16, 2022 Supervising Physician Co-Signing Physician Notes Patient seen and examined. Agree with WING Moreno's note as above. She is resting very comfortably upon entering the room, but does endorse pain in her knee when awakened. She states she is not sleeping well at night, but it sounds like this may be more psychological than due to pain. She does not feel like she is ready to go home today. Plan for likely discharge tomorrow. Subjective POD #2 s/p Right TKA Denies chest pain, shortness of breath. Denies fever chills. Pain 5 out of 10 presently Review of Systems Review of Systems: All systems reviewed & are unremarkable except as noted in HPI & below Constitutional: no fever and no chills Respiratory: no cough and no dyspnea Cardiovascular: no chest pain, no dyspnea and no orthopnea Gastrointestinal: no abdominal pain, no nausea and no vomiting Physical Exam Physical Exam: Vital Signs Temp 37.0 C 08/17/22 20:03 Pulse 85 08/17/22 20:03 Resp 16 08/17/22 20:03 BP 126/65 08/17/22 20:03 Pulse Ox 94 08/17/22 20:03 O2 Del Method Room Air 08/17/22 20:03 O2 Flow Rate 2 08/16/22 14:13 Intake & Output 08/17/22 08/17/22 08/18/22 06:59 18:59 06:59 Intake Total 1500 / 4150 Output Total 150 / 430 1600 / 1600 Balance 1350 / 3720 -1600 / -1600 Intake: IV 1500 / 2700 Sodium Chlorid e 0.9% 1000ML 1, 1500 / 1500 000 ml @ 100 m ls/hr IV .Q10H [facility] Rx#:[id number] Output: Urine 100 / 375 Urine Amount (Ca theter) 1600 / 1600 External 1600 / 1600 Drain Output 50 / 50 Right Knee Hem ovac 50 / 50 Other: # Unmeasured Voi ds 3 1 Constitutional: WD/WN, vitals as above no acute distress Musculoskeletal: Right leg: NVDI, calf SNT, negative sebas sign. DP palpable, able to wiggle toes/ankle movement without difficulty. dressing clean dry and intact. Results & Data Vital Signs (Past 12 Hours) Vital Signs Temp Pulse Resp BP Pulse Ox O2 Del Method 08/17/22 20:03 37.0 C 85 16 126/65 94 Room Air Diagnostic Findings Laboratory Results WBC 8.20 K/ul (4.8-10.8) 08/18/22 05:25 RBC 3.16 M/uL (4.20-5.40) L 08/18/22 05:25 Hgb 9.8 g/dl (12.0-16.0) L 08/18/22 05:25 Hct 28.7 % (37.0-47.0) L 08/18/22 05:25 MCV 90.8 fL (80.0-100.0) 08/18/22 05:25 MCH 31.0 pg (25.0-34.0) 08/18/22 05:25 MCHC 34.1 g/dL (32.0-36.0) 08/18/22 05:25 RDW Std Deviation 47.9 fL (36.4-46.3) H 08/18/22 05:25 RDW Coeff of Dragan 14.4 % (11.5-14.5) 08/18/22 05:25 Plt Count 149 K/uL (130-400) 08/18/22 05:25 MPV 11.0 fL (9.4-12.4) 08/18/22 05:25 Sodium 136 mmol/L (136-145) 08/18/22 05:25 Potassium 4.5 mmol/L (3.5-5.1) 08/18/22 05:25 Chloride 102 mmol/L (98-107) 08/18/22 05:25 Carbon Dioxide 27 mmol/L (21-32) 08/18/22 05:25 Anion Gap 7 (3-11) 08/18/22 05:25 BUN 17 mg/dl (6-23) 08/18/22 05:25 Creatinine 1.26 mg/dl (0.6-1.2) H 08/18/22 05:25 Est Cr Clr Drug Dosing 43.2 ml/min 08/18/22 05:25 Est GFR ( Amer) 47.9 ml/min 08/18/22 05:25 Est GFR (Non-Af Amer) 41.4 ml/min 08/18/22 05:25 BUN/Creatinine Ratio 13.5 (10-20) 08/18/22 05:25 Glucose 147 mg/dl (70-99(Fasting)) H 08/18/22 05:25 POC Glucose 118 mg/dl (70-99) H 08/17/22 20:40 Calcium 8.8 mg/dl (8.6-10.3) 08/18/22 05:25 SARS-CoV-2, RNA, NAAT NEGATIVE (NEGATIVE) 08/16/22 07:11 Impressions Knee X-Ray 08/16/22 12:24 XR knee RT 1 or 2V routine CLINICAL HISTORY: Postoperative evaluation. COMPARISON: None FINDINGS: Alignment of the total right knee arthroplasty is anatomic. There is no periprosthetic fracture or unexpected radiopaque foreign body. There are drains and skin smiley. IMPRESSION: Expected findings following total right knee arthroplasty. ACT 112: Negative or not required by law. Electronically signed by: Charlie Green M.D. 08/16/2022 1:08 PM
[2022-08-18] MEDS: MULTIVITAMIN TAB PO SCH (08:11)
[2022-08-18] MEDS: NIFEdipine EXTENDED REL 30 MG TABCR PO SCH (08:11)
[2022-08-18] MEDS: CYANOCOBALAMIN (B-12) 500 MCG TABLET PO SCH (08:12)
[2022-08-18] MEDS: APIXABAN 5 MG TABLET PO SCH ×2 (08:12→20:25)
[2022-08-18] MEDS: DOCUSATE SODIUM 100 MG CAP PO SCH ×2 (08:12→20:25)
[2022-08-18] MEDS: CHOLECALCIFEROL 1,000 UNITS 25 MCG TAB PO SCH (08:12)
[2022-08-18] MEDS: buPROPion XL 300 MG TABCR PO SCH (08:13)
[2022-08-18] MEDS: FLUTICASONE FUROATE 100MCG 14 PUFFS/INHALER INH SCH (08:13)
[2022-08-18] MEDS: METOPROLOL SUCC 50MG EXT REL TAB PO SCH (08:13)
[2022-08-18] MEDS: UMECLIDINIUM/VILANTEROL 62.5/25MCG 7 PUFFS/INHALER INH SCH (08:14)
[2022-08-18] MEDS: INSULIN ASPART PER UNIT CHARGE SC SCH ×4 (09:49→21:04)
[2022-08-18] MEDS: LANTUS PER UNIT CHARGE SC SCH (09:50)
--- NOTE | 2022-08-18 13:56 | Hospitalist Progress Note ---
Date of Service August 18, 2022 Assessment & Plan (1) Primary osteoarthritis of right knee: Plan: POD#[address] Longo Pain, activity and wound care orders as per ortho Patient complains of increasing pain and swelling at surgical site-concern would be for bleeding being on Eliquis, however H&H stable and will defer further management or work-up to orthopedics (2) Paroxysmal atrial fibrillation: Plan: Anticoagulated on Eliquis, Rate controlled on metoprolol (3) Chronic diastolic CHF (congestive heart failure): Plan: Appears euvolemic, Continue home dose furosemide (4) Diabetes mellitus, type 2: Plan: Hgb A1c 7.5 07/2022 Hold home Ozempic Insulin management per Glycemic pharmacy (5) Hypertension: Plan: BP controlled, continue metoprolol and nifedipine (6) Chronic obstructive pulmonary disease: (7) Asthma: Plan: Appears stable, no signs of acute exacerbation Continue home inhalers (8) CKD (chronic kidney disease), stage III: Plan: Cr at baseline. monitor DVT ppx- Eliquis per orthopedics Dispo per ortho service Admission and Anticipated Discharge Date Admission Date: August 16, 2022 Subjective Patient was seen and examined at bedside. She complains of pain at her right knee and does not feel comfortable to go home today. States her drain was removed last night and she had bleeding from that site. No fever, chills, chest pain, shortness of breath, nausea or vomiting Review of Systems Review of Systems: All systems reviewed & are unremarkable except as noted in Subjective Physical Exam Physical Exam: General: Sitting comfortably in chair, not in distress, on room air HEENT: MADONNA, MMM Chest: Clear breath sounds bilaterally, no wheezes or crackles CVS: Regular rate and rhythm, normal heart sounds, no murmur Abdomen: Soft, non tender, not distended, normal bowel sounds Neuro: Awake, alert, oriented, conversing well, non focal Extremities: Rt knee incision sites covered with dressing-clean dry intact Results & Data Results & Data Vital Signs (Past 12 Hours) Vital Signs Temp Pulse Resp BP Pulse Ox O2 Del Method 08/18/22 08:15 37.0 C 87 16 162/71 H 92 Room Air Laboratory Results Short CBC 08/18/22 Range/Units 05:25 WBC 8.20 (4.8-10.8) K/ul Hgb 9.8 L (12.0-16.0) g/dl Hct 28.7 L (37.0-47.0) % Plt Count 149 (130-400) K/uL BMP 08/18/22 05:25 Sodium 136 Potassium 4.5 Chloride 102 Carbon Dioxide 27 BUN 17 Creatinine 1.26 H Glucose 147 H Calcium 8.8 Medications Administered Current Inpatient Medications Acetaminophen (Acetaminophen 500 Mg Tab) 1,000 mg PO Q8H [facility] Stop: 09/15/22 13:59 Last Admin: 08/18/22 13:44 Dose: 1,000 mg Albuterol (Albuterol Hfa 8 Gm Inhaler) 1 puffs INH TIDR PRN PRN Reason: Shortness Of Breath Stop: 09/15/22 13:43 Apixaban (Apixaban 5 Mg Tablet) 5 mg PO BID [facility] Stop: 09/16/22 08:59 Last Admin: 08/18/22 08:12 Dose: 5 mg Benzonatate (Benzonatate 100 Mg Capsule) 100 mg PO TID PRN PRN Reason: Cough Stop: 09/15/22 13:43 Bisacodyl (Bisacodyl 10 Mg Supp) 10 mg [place] DAILY PRN PRN Reason: Constipation Stop: 09/15/22 13:43 Bupropion HCl (Bupropion Xl 300 Mg Tabcr) 300 mg PO QAM [facility] Stop: 09/16/22 08:59 Last Admin: 08/18/22 08:13 Dose: 300 mg Cyanocobalamin (Cyanocobalamin (B-12) 500 Mcg Tablet) 1,000 mcg PO QAM [facility] Stop: 09/16/22 08:59 Last Admin: 08/18/22 08:12 Dose: 1,000 mcg Docusate Sodium (Docusate Sodium 100 Mg Cap) 100 mg PO BID [facility] Stop: 09/15/22 20:59 Last Admin: 08/18/22 08:12 Dose: 100 mg Fluticasone Furoate (Fluticasone Furoate 100mcg 14 Puffs/Inhaler) 1 puffs INH QAM [facility] Stop: 09/16/22 08:59 Last Admin: 08/18/22 08:13 Dose: 1 puffs Furosemide (Furosemide 40 Mg Tab) 40 mg PO Q48H [facility] Stop: 09/15/22 14:44 Last Admin: 08/16/22 15:31 Dose: 40 mg Hydromorphone HCl (Hydromorphone Inj 0.5 Mg/0.5 Ml Syr) 0.5 mg IV Q4H PRN PRN Reason: Pain or Pre PT Stop: 08/30/22 13:43 Last Admin: 08/18/22 09:50 Dose: 0.5 mg Insulin Aspart (Insulin Aspart Per Unit Charge) 0 units SC ACHS [facility] Stop: 09/15/22 16:29 Last Admin: 08/18/22 13:38 Dose: 5 units Insulin Glargine (Lantus Per Unit Charge) 5 units SC M [facility] Stop: 09/16/22 08:59 Last Admin: 08/18/22 09:50 Dose: 5 units Lorazepam (Lorazepam 0.5 Mg Tab) 0.5 mg PO TID PRN PRN Reason: Anxiety Stop: 09/15/22 13:43 Last Admin: 08/18/22 08:10 Dose: 0.5 mg Magnesium Hydroxide (Magnesium Hydroxide Susp 30 Ml Udc) 30 ml PO Q6H PRN PRN Reason: Constipation Stop: 09/15/22 13:43 Melatonin (Melatonin 3 Mg Tab) 9 mg PO HSZ PRN PRN Reason: Sleep Stop: 09/15/22 13:59 Metoclopramide HCl (Metoclopramide Hcl Inj 5 Mg/Ml 2 Ml Vial) 10 mg IV Q6H PRN PRN Reason: Nausea And Vomiting Stop: 09/15/22 13:43 Metoprolol Succinate (Metoprolol Succ 50mg Ext Rel Tab) 100 mg PO [facility] Stop: 09/16/22 08:59 Last Admin: 08/18/22 08:13 Dose: 100 mg Miscellaneous Information (Pharmacy Glycemic Mgmt Consult) 1 each N/A UD PRN PRN Reason: Consult Stop: 09/15/22 13:43 Multivitamins (Multivitamin Tab) 1 tab PO [facility] Stop: 09/16/22 08:59 Last Admin: 08/18/22 08:11 Dose: 1 tab Naloxone HCl (Naloxone Hcl 0.4 Mg/1 Ml Vial/Carp) 0.1 mg IV Q5M PRN PRN Reason: Oversedation/Resp Depression Stop: 09/15/22 13:43 Nifedipine (Nifedipine Extended Rel 30 Mg Tabcr) 30 mg PO [facility] Stop: 09/16/22 08:59 Last Admin: 08/18/22 08:11 Dose: 30 mg Ondansetron HCl (Ondansetron Inj 2 Mg/Ml 2 Ml Vial) 4 mg IV Q6H PRN PRN Reason: Nausea And Vomiting Stop: 09/15/22 13:43 Oxycodone HCl (Oxycodone Hcl Ir 5 Mg Tab (Immediate Release)) 5 - 10 mg PO Q4H PRN PRN Reason: Pain or Pre PT Stop: 08/30/22 13:43 Last Admin: 08/18/22 13:43 Dose: 10 mg Sennosides (Senna 8.6 Mg Tab) 17.2 mg PO [facility] Stop: 09/15/22 20:59 Last Admin: 08/17/22 20:05 Dose: 17.2 mg Umeclidinium/Vilanterol (Umeclidinium/Vilanterol 62.5/25mcg 7 Puffs/Inhaler) 1 puffs INH [facility] Stop: 09/16/22 08:59 Last Admin: 08/18/22 08:14 Dose: 1 puffs Vitamin D (Cholecalciferol 1,000 Units 25 Mcg Tab) 1,000 units PO [facility] Stop: 09/16/22 08:59 Last Admin: 08/18/22 08:12 Dose: 1,000 units
[2022-08-18] MEDS ORDERED: SIMETHICONE 80 MG CHEW PO PRN (17:51)
[2022-08-18] MEDS: SENNA 8.6 MG TAB PO SCH (20:25)
[2022-08-19] MEDS ORDERED: CALCIUM CARBONATE 500 MG CHEWABLE TAB PO STA (00:27)
[2022-08-19] MEDS: ACETAMINOPHEN 500 MG TAB PO SCH ×2 (05:15→13:00)
[2022-08-19 06:10] LABS: Hematocrit (blood only) 28.9 % (37.0-47.0); Hemoglobin 9.9 g/dl (12.0-16.0); Mean Corpuscular Hemoglobin 30.8 pg (25.0-34.0); Mean Corpuscular Hgb Conc 34.3 g/dL (32.0-36.0); Mean Platelet Volume 11.1 fL (9.4-12.4); Platelet Count 157 K/uL (130-400); RDW Coefficient of Variation 14.2 % (11.5-14.5); RDW Standard Deviation 46.5 fL (36.4-46.3); Red Blood Count 3.21 M/uL (4.20-5.40); White Blood Count 9.01 K/ul (4.8-10.8)
--- NOTE | 2022-08-19 06:29 | Orthopedic Progress Note ---
Date of Service August 19, 2022 Assessment & Plan (1) Primary osteoarthritis of right knee: Plan: Postop day 3 status post right total knee arthroplasty. PT/OT protocols. Weightbearing as tolerated. DVT prophylaxis-apixaban 5 mg p.o. twice daily, SCDs, ROGELIO krishnamurthy. Pain management as written. DC planning-home health services upon discharge. Admission and Anticipated Discharge Date Admission Date: August 16, 2022 Supervising Physician Co-Signing Physician Notes Patient seen and examined. Agree with WING Moreno's note as above. She is resting comfortably. Knee pain is controlled. She complains mostly about acid reflux. Recommended limiting use of narcotics to prevent GI hypomotility. She feels like she is ready to go home today. Discharge to home with home health. Subjective POD #3 s/p Right TKA Review of Systems Constitutional: no fever and no chills Respiratory: no cough and no dyspnea Cardiovascular: no chest pain, no dyspnea and no orthopnea Gastrointestinal: no abdominal pain and no vomiting Physical Exam Physical Exam: Vital Signs Temp 37.5 C 08/18/22 21:06 Pulse 88 08/18/22 21:06 Resp 18 08/18/22 21:06 BP 153/82 H 08/18/22 21:06 Pulse Ox 94 08/18/22 21:06 O2 Del Method Room Air 08/18/22 21:06 O2 Flow Rate 2 08/16/22 14:13 Intake & Output 08/18/22 08/18/22 08/19/22 06:59 18:59 06:59 Intake Total 240 / 640 400 / 640 Output Total 1600 / 1600 1100 / 1100 Balance -1600 / -1600 240 / -460 -700 / -460 Intake: Oral 240 / 640 400 / 640 Output: Urine 700 / 700 Urine Amount (Ca theter) 1600 / 1600 400 / 400 External 1600 / 1600 400 / 400 Other: # Unmeasured Voi ds 1 1 Constitutional: WD/WN, vitals as above no acute distress Musculoskeletal: Right leg: NVDI, calf SNT, negative sebas sign. DP palpable, able to wiggle toes/ankle movement without difficulty. CHECO dressing clean dry and intact. Results & Data Vital Signs (Past 12 Hours) Vital Signs Temp Pulse Resp BP Pulse Ox O2 Del Method 08/18/22 21:06 37.5 C 88 18 153/82 H 94 Room Air 08/18/22 20:47 88 97 Room Air Laboratory Results Laboratory Results WBC 9.01 K/ul (4.8-10.8) 08/19/22 05:32 RBC 3.21 M/uL (4.20-5.40) L 08/19/22 05:32 Hgb 9.9 g/dl (12.0-16.0) L 08/19/22 05:32 Hct 28.9 % (37.0-47.0) L 08/19/22 05:32 MCV 90.0 fL (80.0-100.0) 08/19/22 05:32 MCH 30.8 pg (25.0-34.0) 08/19/22 05:32 MCHC 34.3 g/dL (32.0-36.0) 08/19/22 05:32 RDW Std Deviation 46.5 fL (36.4-46.3) H 08/19/22 05:32 RDW Coeff of Dragan 14.2 % (11.5-14.5) 08/19/22 05:32 Plt Count 157 K/uL (130-400) 08/19/22 05:32 MPV 11.1 fL (9.4-12.4) 08/19/22 05:32 Sodium 136 mmol/L (136-145) 08/18/22 05:25 Potassium 4.5 mmol/L (3.5-5.1) 08/18/22 05:25 Chloride 102 mmol/L (98-107) 08/18/22 05:25 Carbon Dioxide 27 mmol/L (21-32) 08/18/22 05:25 Anion Gap 7 (3-11) 08/18/22 05:25 BUN 17 mg/dl (6-23) 08/18/22 05:25 Creatinine 1.26 mg/dl (0.6-1.2) H 08/18/22 05:25 Est Cr Clr Drug Dosing 43.2 ml/min 08/18/22 05:25 Est GFR ( Amer) 47.9 ml/min 08/18/22 05:25 Est GFR (Non-Af Amer) 41.4 ml/min 08/18/22 05:25 BUN/Creatinine Ratio 13.5 (10-20) 08/18/22 05:25 Glucose 147 mg/dl (70-99(Fasting)) H 08/18/22 05:25 POC Glucose 168 mg/dl (70-99) H 08/18/22 20:58 Calcium 8.8 mg/dl (8.6-10.3) 08/18/22 05:25 SARS-CoV-2, RNA, NAAT NEGATIVE (NEGATIVE) 08/16/22 07:11 Impressions Knee X-Ray 08/16/22 12:24 XR knee RT 1 or 2V routine CLINICAL HISTORY: Postoperative evaluation. COMPARISON: None FINDINGS: Alignment of the total right knee arthroplasty is anatomic. There is no periprosthetic fracture or unexpected radiopaque foreign body. There are drains and skin smiley. IMPRESSION: Expected findings following total right knee arthroplasty. ACT 112: Negative or not required by law. Electronically signed by: Charlie Grene M.D. 08/16/2022 1:08 PM
[2022-08-19 06:33] LABS: Calcium 9.5 mg/dl (8.6-10.3); Creatinine Clr Calc Pharmacy 54.5 ml/min; Est GFR (African American) 63.4 ml/min; Est GFR (Non-African American) 54.7 ml/min; Potassium 4.6 mmol/L (3.5-5.1)
[2022-08-19] MEDS: oxyCODONE HCL IR 5 MG TAB (IMMEDIATE RELEASE) PO PRN ×2 (07:48→12:56)
[2022-08-19] MEDS: MULTIVITAMIN TAB PO SCH (08:01)
[2022-08-19] MEDS: DOCUSATE SODIUM 100 MG CAP PO SCH (08:02)
[2022-08-19] MEDS: METOPROLOL SUCC 50MG EXT REL TAB PO SCH (08:02)
[2022-08-19] MEDS: CYANOCOBALAMIN (B-12) 500 MCG TABLET PO SCH (08:02)
[2022-08-19] MEDS: buPROPion XL 300 MG TABCR PO SCH (08:02)
[2022-08-19] MEDS: APIXABAN 5 MG TABLET PO SCH (08:02)
[2022-08-19] MEDS: NIFEdipine EXTENDED REL 30 MG TABCR PO SCH (08:02)
[2022-08-19] MEDS: CHOLECALCIFEROL 1,000 UNITS 25 MCG TAB PO SCH (08:03)
[2022-08-19] MEDS: UMECLIDINIUM/VILANTEROL 62.5/25MCG 7 PUFFS/INHALER INH SCH (08:04)
[2022-08-19] MEDS: FLUTICASONE FUROATE 100MCG 14 PUFFS/INHALER INH SCH (08:04)
[2022-08-19] MEDS ORDERED: KETOROLAC TROMETHAMINE 15 MG/ML VIAL IV ONE (08:26)
[2022-08-19] MEDS ORDERED: FUROSEMIDE 40 MG TAB PO STA (08:50)
[2022-08-19] MEDS ORDERED: LANTUS PER UNIT CHARGE SC SCH (09:00)
[2022-08-19] MEDS: INSULIN ASPART PER UNIT CHARGE SC SCH ×2 (09:05→12:53)
[2022-08-19] MEDS ORDERED: FAMOTIDINE 40 MG TABLET PO ONE (09:15)
--- NOTE | 2022-08-19 10:09 | Hospitalist Progress Note ---
Date of Service August 19, 2022 Assessment & Plan (1) Primary osteoarthritis of right knee: Plan: POD#[address] Longo Pain, activity and wound care orders as per ortho (2) Paroxysmal atrial fibrillation: Plan: Anticoagulated on Eliquis, Rate controlled on metoprolol (3) Chronic diastolic CHF (congestive heart failure): Plan: Appears euvolemic, Continue home dose furosemide (4) Diabetes mellitus, type 2: Plan: Hgb A1c 7.5 07/2022 Hold home Ozempic, resume at discharge (5) Hypertension: Plan: Continue metoprolol and nifedipine, Lasix (6) Chronic obstructive pulmonary disease: (7) Asthma: Plan: Appears stable, no signs of acute exacerbation Continue home inhalers (8) CKD (chronic kidney disease), stage III: Plan: Cr at baseline. monitor DVT ppx- Eliquis per orthopedics Dispo per ortho service. Patient is stable from hospitalist perspective Admission and Anticipated Discharge Date Admission Date: August 16, 2022 Subjective Patient was seen and examined at bedside. Complains of heartburn and reflux symptoms since yesterday. States Tums finally helped last night but still having some symptoms. States she had rash with Prilosec in the past but has never tried Pepcid. Her pain and swelling is improved today. No fever, chills, chest pain or shortness of breath no nausea or vomiting. Review of Systems Review of Systems: All systems reviewed & are unremarkable except as noted in Subjective Physical Exam Physical Exam: General: Sitting comfortably in bed, not in distress, on room air HEENT: MADONNA, MMM Chest: Clear breath sounds bilaterally, no wheezes or crackles CVS: Regular rate and rhythm, normal heart sounds, no murmur Abdomen: Soft, non tender, not distended, normal bowel sounds Neuro: Awake, alert, oriented, conversing well, non focal Extremities: Rt knee incision sites covered with dressing-clean dry intact Results & Data Results & Data Vital Signs (Past 12 Hours) Vital Signs Temp Pulse Resp BP Pulse Ox O2 Del Method 08/19/22 07:56 Room Air 08/19/22 07:38 37.0 C 85 16 188/84 H 91 Room Air
--- NOTE | 2022-08-21 12:20 | Discharge Summary ---
Date of Service August 21, 2022 Admission HPI Per Admitting Provider 76yo female with PMHx significant for afib, htn, dm2, COPD, who presents with ongoing right knee pain. Pain is interfering with her daily activity. She has failed conservative measures and would like to proceed with surgery. Patient denies headaches, sweats, fevers, chills, double vision, blurred vision, cough, sore throat, dysphagia, chest pain, sob, wheezing, n/v/d/c, numbness, tingling, fatigue, urinary symptoms, mood disorders. ROS positive for right knee pain and stiffness. Admission Exam Per Admitting Provider Constitutional: well developed and well nourished; no acute distress Eyes: PERRL, conjunctivae normal, anicteric sclerae ENMT: external ear and nose normal, oropharynx normal Neck: trachea midline, no thyromegaly Respiratory: normal respiratory effort, lungs clear to auscultation Cardiovascular: RRR, no murmur, no edema Musculoskeletal: Right knee: ROM 20-70 degrees. Varus alignment. Tenderness medial joint line. Stable to valgus and varus stress. Crepitation with ROM. Skin: no rashes, warm and dry Neurologic: patellar DTR's 2+ bilat, sensation intact Psychiatric: A+Ox3, euthymic affect Principal Diagnosis Right knee osteoarthritis Discharge Exam Constitutional: WD/WN, vitals as above no acute distress Musculoskeletal: Right leg: NVDI, calf SNT, negative sebas sign. DP palpable, able to wiggle toes/ankle movement without difficulty. CHECO dressing clean dry and intact. Discharge Data Allergies Allergy/AdvReac Type Severity Reaction Status Date / Time codeine Allergy Headache Verified 08/16/22 07:41 loracarbef Allergy UNKNOWN Verified 08/16/22 07:41 promethazine Allergy UNKNOWN Verified 08/16/22 07:41 spironolactone Allergy UNKNOWN Verified 08/16/22 07:41 tizanidine Allergy UNKNOWN Verified 08/16/22 07:41 gabapentin AdvReac Mild HEADACHE Verified 08/16/22 07:41 lisinopril AdvReac Cough Verified 08/16/22 07:41 pregabalin AdvReac Hives Verified 08/16/22 07:41 Consultations 08/15/22 10:42 Consult Hospitalist Routine Procedures Performed Operation Date: 08/16/22 09:00 Actual Procedures p Right Total Knee Arthroplasty(Right) - Ru Longo MD Ordered Studies 08/16/22 05:00 US - OR guided needle placemen Routine Hospital Course (1) Primary osteoarthritis of right knee: Postop day 3 status post right total knee arthroplasty. PT/OT protocols. Weightbearing as tolerated. DVT prophylaxis-apixaban 5 mg p.o. twice daily, SCDs, ROGELIO hose. Pain management as written. DC planning-home health services upon discharge. Postop day 2 status post right total knee arthroplasty. PT/OT protocols. Weightbearing as tolerated. DVT prophylaxis-apixaban 5 mg p.o. twice daily, SCDs, ROGELIO hose. Pain management as written. DC planning-home health services upon discharge. Postop day 1 status post right total knee arthroplasty. PT/OT protocols. Weightbearing as tolerated. DVT prophylaxis-apixaban 5 mg p.o. twice daily, SCDs, ROGELIO hose. Pain management as written. Hemoglobin dropped from 12 down to 9.8. Patient is asymptomatic. DC planning-home health services upon discharge. Lab Results 08/16/22 08/16/22 08/16/22 Range/Units 07:11 07:31 07:42 WBC (4.8-10.8) K/ul RBC (4.20-5.40) M/uL Hgb (12.0-16.0) g/dl Hct (37.0-47.0) % MCV (80.0-100.0) fL MCH (25.0-34.0) pg MCHC (32.0-36.0) g/dL RDW Std Deviation (36.4-46.3) fL RDW Coeff of Dragan (11.5-14.5) % Plt Count (130-400) K/uL MPV (9.4-12.4) fL Sodium 136 (136-145) mmol/L Potassium 4.3 (3.5-5.1) mmol/L Chloride 102 (98-107) mmol/L Carbon Dioxide 28 (21-32) mmol/L Anion Gap 6 (3-11) BUN 19 (6-23) mg/dl Creatinine 1.23 H (0.6-1.2) mg/dl Est Cr Clr Drug Dosing 44.3 ml/min Est GFR ( Amer) 49.3 ml/min Est GFR (Non-Af Amer) 42.6 ml/min BUN/Creatinine Ratio 15.4 (10-20) Glucose 173 H (70-99(Fasting)) mg/dl POC Glucose 175 H (70-99) mg/dl Calcium 9.1 (8.6-10.3) mg/dl SARS-CoV-2, RNA, NAAT NEGATIVE (NEGATIVE) 08/16/22 08/16/22 08/16/22 Range/Units 12:26 16:54 20:44 WBC (4.8-10.8) K/ul RBC (4.20-5.40) M/uL Hgb (12.0-16.0) g/dl Hct (37.0-47.0) % MCV (80.0-100.0) fL MCH (25.0-34.0) pg MCHC (32.0-36.0) g/dL RDW Std Deviation (36.4-46.3) fL RDW Coeff of Dragan (11.5-14.5) % Plt Count (130-400) K/uL MPV (9.4-12.4) fL Sodium (136-145) mmol/L Potassium (3.5-5.1) mmol/L Chloride (98-107) mmol/L Carbon Dioxide (21-32) mmol/L Anion Gap (3-11) BUN (6-23) mg/dl Creatinine (0.6-1.2) mg/dl Est Cr Clr Drug Dosing ml/min Est GFR ( Amer) ml/min Est GFR (Non-Af Amer) ml/min BUN/Creatinine Ratio (10-20) Glucose (70-99(Fasting)) mg/dl POC Glucose 149 H 166 H 126 H (70-99) mg/dl Calcium (8.6-10.3) mg/dl SARS-CoV-2, RNA, NAAT (NEGATIVE) 08/16/22 08/17/22 08/17/22 Range/Units 23:38 03:25 06:58 WBC (4.8-10.8) K/ul RBC (4.20-5.40) M/uL Hgb (12.0-16.0) g/dl Hct (37.0-47.0) % MCV (80.0-100.0) fL MCH (25.0-34.0) pg MCHC (32.0-36.0) g/dL RDW Std Deviation (36.4-46.3) fL RDW Coeff of Dragan (11.5-14.5) % Plt Count (130-400) K/uL MPV (9.4-12.4) fL Sodium (136-145) mmol/L Potassium (3.5-5.1) mmol/L Chloride (98-107) mmol/L Carbon Dioxide (21-32) mmol/L Anion Gap (3-11) BUN (6-23) mg/dl Creatinine (0.6-1.2) mg/dl Est Cr Clr Drug Dosing ml/min Est GFR ( Amer) ml/min Est GFR (Non-Af Amer) ml/min BUN/Creatinine Ratio (10-20) Glucose (70-99(Fasting)) mg/dl POC Glucose 149 H 133 H 155 H (70-99) mg/dl Calcium (8.6-10.3) mg/dl SARS-CoV-2, RNA, NAAT (NEGATIVE) 08/17/22 08/17/22 08/17/22 Range/Units 07:02 07:02 12:02 WBC 9.20 (4.8-10.8) K/ul RBC 3.25 L (4.20-5.40) M/uL Hgb 9.8 L (12.0-16.0) g/dl Hct 29.3 L (37.0-47.0) % MCV 90.2 (80.0-100.0) fL MCH 30.2 (25.0-34.0) pg MCHC 33.4 (32.0-36.0) g/dL RDW Std Deviation 47.7 H (36.4-46.3) fL RDW Coeff of Dragan 14.4 (11.5-14.5) % Plt Count 155 (130-400) K/uL MPV 10.9 (9.4-12.4) fL Sodium 138 (136-145) mmol/L Potassium 4.4 (3.5-5.1) mmol/L Chloride 105 (98-107) mmol/L Carbon Dioxide 27 (21-32) mmol/L Anion Gap 6 (3-11) BUN 19 (6-23) mg/dl Creatinine 1.45 H (0.6-1.2) mg/dl Est Cr Clr Drug Dosing 37.6 ml/min Est GFR ( Amer) 40.4 ml/min Est GFR (Non-Af Amer) 34.9 ml/min BUN/Creatinine Ratio 13.1 (10-20) Glucose 159 H (70-99(Fasting)) mg/dl POC Glucose 124 H (70-99) mg/dl Calcium 8.1 L (8.6-10.3) mg/dl SARS-CoV-2, RNA, NAAT (NEGATIVE) 08/17/22 08/17/22 08/18/22 Range/Units 17:06 20:40 05:25 WBC 8.20 (4.8-10.8) K/ul RBC 3.16 L (4.20-5.40) M/uL Hgb 9.8 L (12.0-16.0) g/dl Hct 28.7 L (37.0-47.0) % MCV 90.8 (80.0-100.0) fL MCH 31.0 (25.0-34.0) pg MCHC 34.1 (32.0-36.0) g/dL RDW Std Deviation 47.9 H (36.4-46.3) fL RDW Coeff of Dragan 14.4 (11.5-14.5) % Plt Count 149 (130-400) K/uL MPV 11.0 (9.4-12.4) fL Sodium (136-145) mmol/L Potassium (3.5-5.1) mmol/L Chloride (98-107) mmol/L Carbon Dioxide (21-32) mmol/L Anion Gap (3-11) BUN (6-23) mg/dl Creatinine (0.6-1.2) mg/dl Est Cr Clr Drug Dosing ml/min Est GFR ( Amer) ml/min Est GFR (Non-Af Amer) ml/min BUN/Creatinine Ratio (10-20) Glucose (70-99(Fasting)) mg/dl POC Glucose 91 118 H (70-99) mg/dl Calcium (8.6-10.3) mg/dl SARS-CoV-2, RNA, NAAT (NEGATIVE) 08/18/22 08/18/22 08/18/22 Range/Units 05:25 08:08 12:02 WBC (4.8-10.8) K/ul RBC (4.20-5.40) M/uL Hgb (12.0-16.0) g/dl Hct (37.0-47.0) % MCV (80.0-100.0) fL MCH (25.0-34.0) pg MCHC (32.0-36.0) g/dL RDW Std Deviation (36.4-46.3) fL RDW Coeff of Dragan (11.5-14.5) % Plt Count (130-400) K/uL MPV (9.4-12.4) fL Sodium 136 (136-145) mmol/L Potassium 4.5 (3.5-5.1) mmol/L Chloride 102 (98-107) mmol/L Carbon Dioxide 27 (21-32) mmol/L Anion Gap 7 (3-11) BUN 17 (6-23) mg/dl Creatinine 1.26 H (0.6-1.2) mg/dl Est Cr Clr Drug Dosing 43.2 ml/min Est GFR ( Amer) 47.9 ml/min Est GFR (Non-Af Amer) 41.4 ml/min BUN/Creatinine Ratio 13.5 (10-20) Glucose 147 H (70-99(Fasting)) mg/dl POC Glucose 136 H 146 H (70-99) mg/dl Calcium 8.8 (8.6-10.3) mg/dl SARS-CoV-2, RNA, NAAT (NEGATIVE) 08/18/22 08/18/22 08/19/22 Range/Units 17:27 20:58 05:32 WBC 9.01 (4.8-10.8) K/ul RBC 3.21 L (4.20-5.40) M/uL Hgb 9.9 L (12.0-16.0) g/dl Hct 28.9 L (37.0-47.0) % MCV 90.0 (80.0-100.0) fL MCH 30.8 (25.0-34.0) pg MCHC 34.3 (32.0-36.0) g/dL RDW Std Deviation 46.5 H (36.4-46.3) fL RDW Coeff of Dragan 14.2 (11.5-14.5) % Plt Count 157 (130-400) K/uL MPV 11.1 (9.4-12.4) fL Sodium (136-145) mmol/L Potassium (3.5-5.1) mmol/L Chloride (98-107) mmol/L Carbon Dioxide (21-32) mmol/L Anion Gap (3-11) BUN (6-23) mg/dl Creatinine (0.6-1.2) mg/dl Est Cr Clr Drug Dosing ml/min Est GFR ( Amer) ml/min Est GFR (Non-Af Amer) ml/min BUN/Creatinine Ratio (10-20) Glucose (70-99(Fasting)) mg/dl POC Glucose 147 H 168 H (70-99) mg/dl Calcium (8.6-10.3) mg/dl SARS-CoV-2, RNA, NAAT (NEGATIVE) 08/19/22 08/19/22 08/19/22 Range/Units 05:32 07:34 11:59 WBC (4.8-10.8) K/ul RBC (4.20-5.40) M/uL Hgb (12.0-16.0) g/dl Hct (37.0-47.0) % MCV (80.0-100.0) fL MCH (25.0-34.0) pg MCHC (32.0-36.0) g/dL RDW Std Deviation (36.4-46.3) fL RDW Coeff of Dragan (11.5-14.5) % Plt Count (130-400) K/uL MPV (9.4-12.4) fL Sodium 137 (136-145) mmol/L Potassium 4.6 (3.5-5.1) mmol/L Chloride 101 (98-107) mmol/L Carbon Dioxide 30 (21-32) mmol/L Anion Gap 6 (3-11) BUN 12 (6-23) mg/dl Creatinine 1.00 (0.6-1.2) mg/dl Est Cr Clr Drug Dosing 54.5 ml/min Est GFR ( Amer) 63.4 ml/min Est GFR (Non-Af Amer) 54.7 ml/min BUN/Creatinine Ratio 12.0 (10-20) Glucose 151 H (70-99(Fasting)) mg/dl POC Glucose 165 H 171 H (70-99) mg/dl Calcium 9.5 (8.6-10.3) mg/dl SARS-CoV-2, RNA, NAAT (NEGATIVE) Total Time Total Time Spent Total Time Spent (In Minutes): 20 Discharge Plan Discharge Items Patient Disposition: Home - Home Health Services Reason For Visit: Osteoarthritis Knee Right Discharge Diagnosis: right total knee replacement Activity: Per Instructions section Non-emergency contact: Surgeon Call non-emergency contact if: you have any medication questions, your temperature is above 101, your wound has increased redness, your wound has incre ased drainage and your wound pain has increased Follow-up/Referrals: Ru Longo MD [Surgeon] - PCP,NO [Physician] - Diet: Carb Consistent or DM2 Addtl Attending Provider Instructions: ACTIVITY RECOMMENDATIONS: SELF CARE INSTRUCTIONS AFTER TOTAL KNEE REPLACEMENT A. You may need to continue a physical therapy program after discharge from the hospital. There are several options available to you. Your doctor will assist you in selecting the best one for you. 1. An out-patient facility 2 to 3 times a week for therapy or home therapy. 2. Continue working on all exercises taught to you in the hospital. Your goals should be to increase bending of your knee to 90 degrees and beyond and to fully straighten your knee. B. You may progress at your own pace from walking with a walker or crutches to a cane; then to no assistive devices. C. Make walking a part of your daily routine. Be up as much as comfortable with rest periods throughout the day. Rest with leg elevation is very important. Use the ice wrap frequently for the first 3-4 weeks. D. There are no restrictions on activities. You may ride in a car, shop, participate in primary teaching assistant and all social activities. E. Wear the long elastic stockings (ROGELIO hose) 20 hours a day for 2 weeks after surgery. They can be removed several times a day for laundering and for a bath. F. You may shower, no tub baths until cleared by your doctor. SPECIAL CARE INSTRUCTIONS: VERY IMPORTANT TO READ AND REVIEW A. There are a few signs you need to watch for after you are home. Call [facility] if you notice any of the followin. Increased severe knee pain. Some pain is expected especially when you exercise. 2. Increased swelling in your leg or knee; pain or swelling of the calf muscle in either lower leg. 3. Any fluid drainage from the incision. 4. Shortness of breath or chest pain. B. Please call [facility] at if you have any concerns or questions about your operation or recovery. The doctor or his nurse will return your call promptly. C. You must take antibiotics before dental work, bladder, bowel or other surgery. Your doctor will provide you with a permanent care to carry describing this precaution. IMPORTANT: * REMEMBER TO TAKE ASPIRIN, 81 MG, TWICE DAILY FOR 4 WEEKS UNLESS OTHERWISE DIRECTED. THIS IS YOUR BLOOD THINNER. * HIGH RISK PATIENTS MAY BE PRESCRIBED A STRONGER BLOOD THINNER. THIS WILL BE PROVIDED AT DISCHARGE. * CALL IF INCREASED PAIN, REDNESS, DRAINAGE OR FEVER GREATER THAT 101. * WEAR ROGELIO HOSE 20 HOURS PER DAY FOR 2 WEEKS. CHECO Dressing- This is a large suction dressing covering your incision. This will help pull any excess drainage from the wound and allow your incision to heal properly. You may shower with this if you can keep the unit outside of the shower. If any bleeding or leakage is noted please call your doctor's office. This will remain on your incision for 7 days and then should be removed. This can be done yourself or by the home nursing staff if applicable. The entire unit is disposable once removed. Once removed, keep incision clean and dry. If redness or drainage is noted, please call your surgeon. FOLLOW UP VISIT: If appointment is not already scheduled: Please call [facility] to make a follow-up appointment for 2 weeks after your surgery at . Pending Studies at Discharge: No Stand-Alone Forms: My wedgies, Pain - Opioid Pain Management, Smoking Cessation Medications and DC Order Prescriptions: New cefadroxil 500 mg capsule 500 mg PO BID 14 Days Qty: 28 0RF oxycodone 5 mg tablet 5 - 10 mg PO Q6H PRN (Reason: pain) Qty: 30 0RF Rx Instructions: ongoing therapy, supervising dr liliana dixon. max 6 tabs in 24 hours famotidine [Pepcid] 20 mg tablet 20 mg PO BID Qty: 20 0RF Continued nifedipine 30 mg Tablet Extended Release 24hr 30 mg PO QAM cyanocobalamin (vitamin B-12) [Vitamin B-12] 1,000 mcg Tablet Extended Release 1,000 mcg PO QAM metoprolol succinate 100 mg Tablet Extended Release 24 Hr 100 mg PO QAM lorazepam 0.5 mg Tablet 0.5 - 1 mg PO TID PRN (Reason: Anxiety) Patient Comments: usually takes at least 1 dose per day benzonatate 100 mg Capsule 100 mg PO TID PRN (Reason: Cough) cholecalciferol (vitamin D3) [Vitamin D3] 25 mcg (1,000 unit) Capsule 25 mcg PO QAM bupropion HCl 150 mg Tablet Extended Release 24 Hr 300 mg PO QAM Trelegy Ellipta 100-62.5-25 mcg Blister With Device 1 inh inhalation QAM zinc 15 mg Tablet 15 mg PO QAM albuterol sulfate [ProAir HFA] 90 mcg/actuation Hfa Aerosol Inhaler 1 puff INHALATION TID PRN (Reason: Shortness Of Breath) Eliquis 5 mg Tablet 5 mg PO BID Ozempic 0.25 mg or 0.5 mg (2 mg/3 mL) Pen Injector 0.5 mg SUBCUT Q7D Patient Comments: wednesdays acetaminophen 500 mg tablet 1,000 mg PO Q8H melatonin 10 mg Tablet 10 mg PO HS PRN (Reason: Sleep) furosemide [Lasix] 40 mg Tablet 40 mg PO Q OTHER DAY Admission Data Admit Date/Time: 08/16/22 12:24 Attending Provider: Ru Longo Admit Provider: Ru Longo Primary Care Provider: Madeline Rose Other Providers: Trey Toney ; Raphael Muro ; [facility] Other Interventions: Discharge Summary Assessment (RN) Last Done: 08/19/22 12:22
== END 2022-08-19 16:00 | disposition home health service (06) ==
LOC: ASU 06:50 → 3E 06:50